=== PATIENT | female | born 1955 | race Caucasian/White ===

== ENCOUNTER 2017-04-15 08:28 | Inpatient (IN) | payer BC ==
--- NOTE | 2017-04-03 10:34 | HISTORY & PHYSICAL EXAMINATION ---
DATE OF ADMISSION: 04/15/2017 PROCEDURE: Right knee replacement. HISTORY OF PRESENT ILLNESS: The patient is a harman 62-year-old female who presents for preoperative evaluation prior to right knee replacement. She states she has been having pain in this knee for several years now, which has gradually worsened, it has now gotten to the point it is affecting her daily activities including walking, standing, going up and down steps. She has tried oral anti-inflammatories without relief. After discussing further care, we would like to proceed with a right knee replacement. PAST MEDICAL HISTORY: 1. Hypothyroidism. 2. GERD. 3. Hypertension. 4. High cholesterol. 5. History of hypokalemia. 6. Anxiety. 7. Seasonal allergies. ALLERGIES: No known drug allergies. CURRENT MEDICATIONS: 1. Levothyroxine 88 mcg daily. 2. Pantoprazole 40 mg daily. 3. Valsartan/hydrochlorothiazide 12.5 mg daily. 4. Diclofenac as needed. 5. Crestor 1 daily. 6. Potassium gluconate 550 mg b.i.d. 7. Vitamin D3. 8. Magnesium. 9. Centrum Silver. 10. Xanax as needed. 11. Zyrtec as needed. PAST SURGICAL HISTORY: 1. Spinal fusion in 2010. 2. 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 3. Abdominal surgery from previous C-sections. FAMILY HISTORY: Noncontributory. SOCIAL HISTORY: Denies a history of smoking or tobacco use. No alcohol consumption. She is , lives in a 2-story home. REVIEW OF SYSTEMS: Otherwise negative. Please see HPI for pertinent positives. PHYSICAL EXAMINATION: GENERAL: Harman 62-year-old female in no acute distress, alert and oriented x3. She is 5 feet 6, weighs 170 pounds. VITAL SIGNS: Blood pressure 130/82, pulse 88, O2 sat is 96% on room air. HEENT: Head normocephalic, atraumatic. CARDIAC: Regular rate and rhythm. No murmurs or gallops appreciated. Resting pulse 88 beats per minute. LUNGS: Clear to auscultation. ABDOMEN: Soft, nontender. Bowel sounds present. EXTREMITIES: Right lower extremity is neurovascularly intact. Calves are soft and nontender. DP pulse +2. Demonstrates good quad tone. Straight leg raise without lag. Overall has a slight valgus deformity. Has positive crepitation with motion. Range of motion is 0/3/120. IMAGING: Reviewed of the right knee show findings consistent with the degenerative joint disease including joint space narrowing, subchondral sclerosis, and osteophyte formation noted. IMPRESSION: 1. Right knee degenerative joint disease. 2. Past medical history as outlined above. PLAN: Further care discussed with patient. At this point in time, has failed conservative measures and would like to proceed with a right knee replacement. We will place on aspirin 81 mg p.o. b.i.d. for a month postop. She otherwise has no other questions or concerns.
[2017-04-03 11:04] VITALS: BMI 29.0
--- NOTE | 2017-04-03 11:35 | PAT Medication Instructions ---
Service Date April 03, 2017. Current Home Medication List Alprazolam (Xanax), 0.5 MG PO HS PRN for RN Bupropion (Wellbutrin Sr), 200 MG PO BID Cetirizine (Zyrtec), 10 MG PO PRN Cholecalciferol (Vitamin D3), 1,000 UNITS PO BID Diclofenac (Voltaren), 50 MG PO BID Levothyroxine Sodium (Tirosint), 88 MCG PO QAM Multivitamin (Multivitamin), 1 TAB PO HS Pantoprazole (Protonix), 40 MG PO for am Potassium Gluconate (Potassium Gluconate), 550 MG PO BID Rosuvastatin Calcium (Crestor), 5 MG PO QPM [Magnesium], 30 MG PO HS [Valsartan Hctz], 1 TAB PO QAM Medication Instructions For Your Scheduled Surgery - Hold the following medications the morning of surgery: [Valsartan Hctz], 1 TAB PO QAM Diclofenac (Voltaren), 50 MG PO BID (otherwise okay to continue per surgeon) Cholecalciferol (Vitamin D3), 1,000 UNITS PO BID Cetirizine (Zyrtec), 10 MG PO PRN Potassium Gluconate (Potassium Gluconate), 550 MG PO BID - Take the following medications the morning of surgery with a sip of water OTHERWISE NOTHING TO EAT OR DRINK AFTER MIDNIGHT: Pantoprazole (Protonix), 40 MG PO Levothyroxine Sodium (Tirosint), 88 MCG PO QAM Bupropion (Wellbutrin Sr), 200 MG PO BID - Take the following medications as scheduled the night before surgery: Multivitamin (Multivitamin), 1 TAB PO HS Rosuvastatin Calcium (Crestor), 5 MG PO QPM [Magnesium], 30 MG PO HS Cholecalciferol (Vitamin D3), 1,000 UNITS PO BID Cetirizine (Zyrtec), 10 MG PO PRN Bupropion (Wellbutrin Sr), 200 MG PO BID Potassium Gluconate (Potassium Gluconate), 550 MG PO BID Alprazolam (Xanax), 0.5 MG PO HS PRN for RN If you have any questions please call us at [phone] or [phone] or [phone]
[2017-04-03 12:32] LABS: URINE APPEARANCE CLEAR (CLEAR); URINE BILIRUBIN NEG (NEG); URINE COLOR DK YELLOW; URINE EPITHELIAL CELL AUTO 20-30 /lpf (0-5); URINE NITRITE NEG (NEG); URINE SPECIFIC GRAVITY 1.028 (1.000-1.030); UROBILINOGEN NEG (NEG)
--- NOTE | 2017-04-03 12:32 | DIAGNOSTIC IMAGING REPORT ---
CHEST 2 VIEWS ROUTINE CLINICAL HISTORY: PAT preoperative evaluation COMPARISON STUDY: No previous studies for comparison. FINDINGS: The bones soft tissues and hemidiaphragms are normal. The cardiomediastinal silhouette is normal. The lungs are clear. The pulmonary vasculature is normal. Possible bilateral nodularity. CT of the chest is suggested as follow-up. IMPRESSION: Possible bilateral pulmonary nodularity with CT chest recommended. Electronically signed by: Wally Atkinson M.D. 04/03/2017 12:30 PM Dictated Date/Time: 04/03/2017 12:29 PM
[2017-04-03 12:35] LABS: PARTIAL THROMBOPLASTIN RATIO 1.2; PROTHROMBIN TIME (PATIENT) 10.3 SECONDS (9.0-12.0)
[2017-04-03 12:44] LABS: MANUAL MICROSCOPIC REQUIRED? NO; REVIEW REQ? NO
[2017-04-03 13:27] LABS: ESTIMATED AVERAGE GLUCOSE 108 mg/dl; HA1C FLAG Normal (Normal)
[2017-04-15] VITALS (9 sets, daily range): BP systolic 98–124; BP diastolic 62–89; PULSE 77–83; TEMP 36.3–36.8; O2SAT 92–96; Ht 167.6 cm; Wt 81.0 kg
[~2017-04-15] VITALS: Ht 167.6 cm; Wt 81.0 kg
--- NOTE | 2017-04-15 06:55 | History & Physical Bridge Note ---
H&P Re-Evaluation Bridge Note: I have examined the patient, reviewed the History & Physical and in the interval since the performance of the History & Physical I have noted the following changes of clinical significance: No changes noted
[~2017-04-15 08:28] MED LIST: ACETAMINOPHEN 500 MG TAB PO SCH; ALPR-411 PO; BUPIVACAINE 0.25% 30 ML VIAL ONE; BUPIVACAINE 0.5 % 5 MG/1 ML PF 10ML VIAL ONE; BUPR200T2 PO; CEFAZOLIN 2000 MG/60 ML D5W 60 ML IV SCH; CETI10TA84 PO; CHOL1CAP57 PO; CeleBREX 200 MG CAP PO SCH; DEXAMETHASONE 4 MG TAB PO SCH; DICL50TA3 PO; FAMOTIDINE 20 MG TAB PO SCH; GABAPENTIN 300 MG CAP PO SCH; LACTATED RINGER'S 1000ML 1,000 ML IV SCH; LACTATED RINGER'S 1000ML IV SCH; LACTATED RINGER'S 500 ML IV SCH; LEVO88CA2 PO; MAGNESIUM PO; METOCLOPRAMIDE HCL 10 MG TAB PO SCH; MULT-506 PO; PANT40TA PO; POTA550T4 PO; ROPIVACAINE 5MG/ML 30 ML 150 MG, BUPIVACAINE/EPINEPHR 0.5% MPF 30 ML, KETOROLAC TROMETH... INFIL SCH; ROSU5TAB PO; VALSARTAN HCTZ PO
[2017-04-15] MEDS ORDERED: LIDOCAINE HCL 2% 2 ML VIAL (20MG/ML) ONE (08:49)
[2017-04-15] MEDS ORDERED: MIDAZOLAM HCL 1 MG/ML 2ML VIAL ONE (08:49)
[2017-04-15] MEDS ORDERED: ONDANSETRON INJ 2 MG/ML 2 ML VIAL ONE (08:49)
[2017-04-15] MEDS ORDERED: FENTANYL CITRATE INJ 50 MCG/1 ML 2 ML VIAL ONE (08:49)
[2017-04-15] MEDS ORDERED: PROPOFOL IV EMULSION 10 MG/ML 20 ML VIAL IV ONE (08:49)
[2017-04-15] MEDS ORDERED: FENTANYL CITRATE INJ 50 MCG/1 ML 2 ML VIAL IV PRN (09:15)
[2017-04-15] MEDS ORDERED: LABETALOL HCL IV 5 MG/ML 20ML IV PRN (09:15)
[2017-04-15] MEDS ORDERED: EpHEDrine SULFATE INJ 50 MG/ML AMP IV PRN (09:15)
[2017-04-15] MEDS ORDERED: HYDROmorphone INJ 1 MG/ML SYR IV PRN (09:15)
[2017-04-15] MEDS ORDERED: ONDANSETRON INJ 2 MG/ML 2 ML VIAL IV PRN ×2 (09:15→11:45)
[2017-04-15] MEDS ORDERED: MEPERIDINE HCL 25 MG/ML CARP IV PRN (09:15)
[2017-04-15] MEDS ORDERED: ATROPINE SULFATE 0.1 MG/ML 5ML SYR IV PRN (09:15)
[2017-04-15] MEDS ORDERED: BACITRACIN 50000 UNIT VIAL ONE (09:58)
[2017-04-15] MEDS ORDERED: ORTHO JOINT ANESTHETIC ONE (09:58)
[2017-04-15] MEDS ORDERED: POVIDONE-IODINE OP SOLN 30 ML BTL ONE (09:58)
--- NOTE | 2017-04-15 11:41 | [facility] Post Operative Brief Note ---
Immediate Operative Summary Operative Date April 15, 2017. Pre-Operative Diagnosis Right Knee Degenerative Joint Disease Post-Operative Diagnosis Same as preop Procedure(s) Performed Right Total Knee Arthroplasty Surgeon Dr. Whitt Childbirth [facility] Teacher Surgeon(s) Layton Ramos PA-C Estimated Blood Loss 5ml Findings severe djd rt knee with valgus alignment Specimens A. Right Knee Bone and Tissue Complication(s) None Disposition Recovery Room / PACU
[2017-04-15] MEDS ORDERED: METOCLOPRAMIDE HCL INJ 5 MG/ML 2 ML VIAL IV PRN (11:45)
[2017-04-15] MEDS ORDERED: MAGNESIUM HYDROXIDE SUSP 30 ML UDC PO PRN (11:45)
[2017-04-15] MEDS ORDERED: HYDROCODONE/ACETAMOPHEN 5/325MG TAB PO PRN (11:45)
[2017-04-15] MEDS ORDERED: SOD PHOSPHATE/SOD BIPHOSPHATE ENEMA 132 ML BTL PR PRN (11:45)
[2017-04-15] MEDS ORDERED: ALUMINUM/MAGNESIUM/SIMETH (MAALOX MAX) 30 ML UDC PO PRN (11:45)
[2017-04-15] MEDS ORDERED: DiphenhydrAMINE HCL 50 MG/ML VIAL IV PRN (11:45)
[2017-04-15] MEDS ORDERED: BISACODYL 10 MG SUPP PR PRN (11:45)
[2017-04-15] MEDS ORDERED: ZOLPIDEM TARTRATE 5 MG TAB PO PRN (11:45)
[2017-04-15] MEDS ORDERED: CETIRIZINE HCL 10 MG TAB PO PRN (11:45)
[2017-04-15] MEDS ORDERED: ALPRAZOLAM 0.5 MG TAB PO PRN (11:45)
--- NOTE | 2017-04-15 12:22 | OPERATIVE REPORT ---
DATE OF OPERATION: 04/15/2017 PREOPERATIVE DIAGNOSIS: Severe end-stage degenerative joint disease, right knee. POSTOPERATIVE DIAGNOSIS: Severe end-stage degenerative joint disease, right knee with valgus alignment. PROCEDURE: Right total knee arthroplasty utilizing Garrett \T\ Nephew Journey II patient matched total knee arthroplasty with size 4 femur, 3 tibia, 11 poly, 29 oval patella. SURGEON: Dr. Whitt. RESPIRATORY SERVICES MANAGER: Layton Ramos PA-C who was necessary for prepping, draping, retraction, wound closure of subQ, fascia and deep wound was necessary for the case. ESTIMATED BLOOD LOSS: 5 mL. COMPLICATIONS: None. TOURNIQUET TIME: 35 minutes. HISTORY OF PRESENT ILLNESS: The patient presents as a very pleasant 62-year-old white female with complaints of ongoing pain attributable to her right knee. She has severe end-stage disease. She has failed attempts at conservative management and presents for total knee arthroplasty after failing injections, corticosteroid injections, viscosupplementation injections as well as activity modification. She presents for total knee arthroplasty. Plan is for total knee arthroplasty, postoperative pain management, DVT prophylaxis. OPERATION AND FINDINGS: PROCEDURE: The patient was properly prepped and draped in supine position for total knee arthroplasty after identifying the appropriate surgical site. An anterior midline incision was made through the subcutaneous tissues down to the region of the extensor mechanism. A medial parapatellar incision was subsequently made. Meticulous hemostasis was obtained and performed at all times. The patella having been subluxed lateralward, medial and lateral meniscal remnants were excised. The patellar cut was then initially made and was sized to the appropriate size. After subluxing the tibia forward the appropriate meniscal fragments having been removed the distal femur was then cut first utilizing a Garrett \T\ Nephew block. The distal femoral cuts and chamfer cuts were all made under direct visualization and the proximal tibial osteotomy cut was also made utilizing Garrett \T\ Nephew blocks and checked with an extramedullary guide. The appropriate trial components on the femur and tibia were placed. Appropriate trial spacers were used to check flexion and extension gaps. With flexion and extension gaps being equal, the components were then subsequently after thorough irrigation and debridement lavage components were then subsequently cemented in the following order: femur, tibia and patella. Exparel was used for intraoperative anesthesia, the medial parapatellar incision was closed utilizing #1 Vicryl, subQ was closed with 2-0 Vicryl, skin was closed with skin clips. A sterile compression dressing was placed. The patient was taken to recovery room in stable condition. Due to the complex nature of the procedure, the entire surgery was performed with the operational assistance of Layton Ramos PA-C. The assistant printer floor covering, under direct supervision, was involved in the actual performance of all aspects of the surgical procedure including hemostasis, tissue retraction and incision, instrument management, patient positioning, and wound closure. I attest to the content of the Intraoperative Record and any orders documented therein. Any exceptio ns are noted below.
[2017-04-15] MEDS ORDERED: MoRPHine SULFATE 2 MG/ML CARP IV PRN (12:30)
--- NOTE | 2017-04-15 12:52 | Anesthesiology Progress Note ---
Anesthesia Post Op Note Date & Time April 15, 2017 at 12:52 Vital Signs Pain Intensity: 0 Vital Signs Past 12 Hours Date Time Temp Pulse Resp B/P Pulse Ox O2 Delivery O2 Flow Rate FiO2 04/15/17 12:16 36.2 76 16 102/73 96 Mask 10 04/15/17 08:59 36.8 78 18 124/89 95 Room Air Notes Mental Status: alert / awake / arousable, participated in evaluation Pt Amnestic to Procedure: Yes Nausea / Vomiting: adequately controlled Pain: adequately controlled Airway Patency, RR, SpO2: stable & adequate BP & HR: stable & adequate Hydration State: stable & adequate Neuraxial Anesthesia: was administered, sensory block is resolving Anesthetic Complications: no major complications apparent
--- NOTE | 2017-04-15 13:12 | DIAGNOSTIC IMAGING REPORT ---
RIGHT KNEE 1 OR 2 VIEWS ROUTINE CLINICAL HISTORY: AP/LATERAL IN PACU RIGHT KNEE Right knee replacement COMPARISON: None. DISCUSSION: Evidence for a total right knee arthroplasty. Good contact between prosthetic and underlying bone. Surgical drains are in position. Expected soft tissue postoperative change IMPRESSION: Anatomic alignment status post total right knee replacement Electronically signed by: Wally Atkinson M.D. 04/15/2017 1:11 PM Dictated Date/Time: 04/15/2017 1:10 PM
[2017-04-15] MEDS: SODIUM CHLORIDE 0.9% 1000ML 1,000 ML IV SCH ×2 (14:33→21:47)
[2017-04-15] MEDS: FERROUS GLUCONATE 324 MG TAB PO SCH (17:42)
[2017-04-15] MEDS ORDERED: TRANEXAMIC ACID INJ 1,000 MG in SODIUM CHLORIDE 0.9% 100ML 100 ML IV SCH (18:00)
[2017-04-15] MEDS: CEFAZOLIN IV 2,000 MG in DEXTROSE 5% 50ML 50 ML IV SCH (19:32)
[2017-04-15] MEDS: OXYCODONE HCL 10 MG TABCR (OXYCONTIN) PO SCH (20:49)
[2017-04-15] MEDS: ASPIRIN 325 MG ECTAB PO SCH (20:49)
[2017-04-15] MEDS: SENNA 8.6 MG TAB PO SCH (20:49)
[2017-04-15] MEDS: ROSUVASTATIN CALCIUM 10 MG TAB PO SCH (20:50)
[2017-04-15] MEDS: DOCUSATE SODIUM 100 MG CAP PO SCH (20:50)
[2017-04-15] MEDS: BuPROPion SR 100 MG TABCR PO SCH (20:50)
[2017-04-15] MEDS ORDERED: MAGNESIUM 30 MG PO SCH (21:00)
[2017-04-15] MEDS ORDERED: NON-FORMULARY MEDICATION (Potassium Gluconate 550 MG) PO SCH (21:00)
[2017-04-15] MEDS: ACETAMINOPHEN 500 MG TAB PO SCH (21:49)
[2017-04-16] MEDS: CEFAZOLIN IV 2,000 MG in DEXTROSE 5% 50ML 50 ML IV SCH (03:28)
[2017-04-16 03:59] VITALS: BP 99/67; PULSE 80; TEMP 36.4; O2SAT 94
[2017-04-16 05:45] LABS: HEMATOCRIT 30.5 % (37-47); MEAN CORPUSCULAR HGB CONC 34.4 g/dl (32-36); MEAN PLATELET VOLUME 9.4 fL (7.4-10.4); PLATELET COUNT 240 K/uL (130-400); RED BLOOD COUNT 3.28 M/uL (4.2-5.4); WHITE BLOOD COUNT 16.78 K/uL (4.8-10.8)
[2017-04-16] MEDS: LEVOTHYROXINE 88 MCG TAB PO SCH (05:58)
[2017-04-16] MEDS: ACETAMINOPHEN 500 MG TAB PO SCH ×3 (05:58→21:50)
[2017-04-16 07:56] VITALS: BP 116/74; PULSE 81; TEMP 36.4; O2SAT 96
--- NOTE | 2017-04-16 08:02 | Anesthesiology Progress Note ---
Anesthesia Post Op Note Date & Time April 16, 2017 at 08:02 Vital Signs Pain Intensity: 0.0 Vital Signs Past 12 Hours Date Time Temp Pulse Resp B/P Pulse Ox O2 Delivery O2 Flow Rate FiO2 04/16/17 07:56 36.4 81 16 116/74 96 Room Air 04/16/17 03:59 36.4 80 16 99/67 94 04/15/17 23:35 36.5 80 16 105/62 94 Room Air Notes Mental Status: alert / awake / arousable, participated in evaluation Pt Amnestic to Procedure: Yes Nausea / Vomiting: adequately controlled Pain: adequately controlled Airway Patency, RR, SpO2: stable & adequate BP & HR: stable & adequate Hydration State: stable & adequate Neuraxial Anesthesia: sensory block resolved Anesthetic Complications: no major complications apparent
[2017-04-16] MEDS: SODIUM CHLORIDE 0.9% 1000ML 1,000 ML IV SCH (08:05)
[2017-04-16] MEDS: DOCUSATE SODIUM 100 MG CAP PO SCH ×2 (08:52→21:18)
[2017-04-16] MEDS: FERROUS GLUCONATE 324 MG TAB PO SCH ×3 (08:52→17:16)
[2017-04-16] MEDS: OXYCODONE HCL 10 MG TABCR (OXYCONTIN) PO SCH ×2 (08:53→21:17)
[2017-04-16] MEDS: MULTIVITAMIN TAB PO SCH (08:53)
[2017-04-16] MEDS: ASPIRIN 325 MG ECTAB PO SCH ×2 (08:53→21:18)
[2017-04-16] MEDS: PANTOprazole SOD 40 MG TAB PO SCH (08:53)
[2017-04-16] MEDS: BuPROPion SR 100 MG TABCR PO SCH ×2 (08:54→21:18)
[2017-04-16] MEDS: OXYCODONE HCL IR 5 MG TAB (IMMEDIATE RELEASE) PO PRN ×3 (08:55→21:19)
--- NOTE | 2017-04-16 10:16 | Orthopedic Progress Note ---
Orthopedic Progress Note Date of Service April 16, 2017. Subjective Post OP Day: 1 Reports: feeling well, Denies: complaints Objective calves soft nontender, N/V intact, dressing C/D/I, A&O x3, toes mobile, hemovac drainage (150ml latest shift) Date Time Temp Pulse Resp B/P Pulse Ox O2 Delivery O2 Flow Rate FiO2 04/16/17 08:00 Room Air 04/16/17 07:56 36.4 81 16 116/74 96 Room Air 04/16/17 03:59 36.4 80 16 99/67 94 04/15/17 23:35 36.5 80 16 105/62 94 Room Air 04/15/17 19:42 36.5 77 18 98/65 93 Room Air 04/15/17 19:40 Room Air 04/15/17 16:34 95 Room Air 04/15/17 16:29 36.4 82 18 98/67 95 Nasal Cannula 2.0 04/15/17 16:00 Nasal Cannula 2.0 04/15/17 15:30 36.3 78 18 105/71 93 Nasal Cannula 2.0 04/15/17 14:30 36.3 83 17 104/72 95 Nasal Cannula 2.0 04/15/17 14:00 36.3 80 17 113/70 96 Nasal Cannula 2.0 04/15/17 13:30 Nasal Cannula 2.0 04/15/17 13:30 92 Nasal Cannula 2.0 04/15/17 13:30 36.6 81 18 100/72 92 Nasal Cannula 2.0 04/15/17 13:11 79 18 04/15/17 13:11 79 18 100/76 96 04/15/17 13:10 36.3 77 16 100/76 95 Nasal Cannula 2 04/15/17 13:06 79 19 04/15/17 13:06 79 19 123/73 96 04/15/17 13:01 75 20 106/66 95 04/15/17 13:01 76 20 04/15/17 12:56 79 20 04/15/17 12:56 79 20 120/78 96 04/15/17 12:51 83 13 04/15/17 12:51 82 13 102/65 96 04/15/17 12:46 81 20 110/74 94 04/15/17 12:46 80 20 04/15/17 12:41 85 18 04/15/17 12:41 85 18 101/62 96 04/15/17 12:36 80 15 125/68 97 04/15/17 12:36 81 15 04/15/17 12:31 84 18 110/70 95 04/15/17 12:31 84 16 04/15/17 12:26 78 13 04/15/17 12:26 78 13 107/66 95 04/15/17 12:21 79 14 98/64 95 04/15/17 12:21 79 14 04/15/17 12:17 102/73 04/15/17 12:16 78 97 04/15/17 12:16 78 04/15/17 12:16 36.2 76 16 102/73 96 Mask 10 Laboratory Results 24 Hours: Test 04/16/17 05:07 Hematocrit 30.5 % Hemoglobin 10.5 g/dL Assessment & Plan Assessment: POD 1 s/p Right TKA Plan: PT/OT Planning for OPPT Inhouse Planning Pain Management: Oxycontin, Morphine, PO Tylenol, Oxy IR DVT Prophylaxis: TEDs, SCDs, ASA Discharge Planning Discharge Planning: home with oppt Pain Management: Oxycontin, Morphine, PO Tylenol, Oxy IR DVT Prophylaxis: TEDs, ASA Therapy: Physical Therapy
[2017-04-16 10:48] LABS: BUN/CREATININE RATIO 15.8 (10-20); CALCIUM 8.2 mg/dl (8.5-10.1); CREATININE 0.78 mg/dl (0.60-1.20); POTASSIUM 4.1 mmol/L (3.5-5.1)
[2017-04-16 12:00] VITALS: BP 101/63; PULSE 74; TEMP 36.4; O2SAT 92
[2017-04-16 15:54] VITALS: BP 118/80; PULSE 79; TEMP 36.6; O2SAT 97
[2017-04-16] MEDS: SENNA 8.6 MG TAB PO SCH (21:48)
[2017-04-16] MEDS: ROSUVASTATIN CALCIUM 10 MG TAB PO SCH (21:49)
[2017-04-16 23:05] VITALS: BP 121/82; PULSE 73; TEMP 36.4; O2SAT 94
[2017-04-17] MEDS: OXYCODONE HCL IR 5 MG TAB (IMMEDIATE RELEASE) PO PRN ×2 (05:15→13:42)
[2017-04-17] MEDS: ACETAMINOPHEN 500 MG TAB PO SCH ×2 (06:11→13:49)
[2017-04-17] MEDS: LEVOTHYROXINE 88 MCG TAB PO SCH (06:11)
[2017-04-17 06:38] VITALS: BP 112/73; PULSE 68; TEMP 36.3; O2SAT 95
[2017-04-17] MEDS: OXYCODONE HCL 10 MG TABCR (OXYCONTIN) PO SCH (08:02)
[2017-04-17] MEDS: FERROUS GLUCONATE 324 MG TAB PO SCH ×2 (08:03→13:34)
[2017-04-17] MEDS: MULTIVITAMIN TAB PO SCH (08:04)
[2017-04-17] MEDS: PANTOprazole SOD 40 MG TAB PO SCH (08:04)
--- NOTE | 2017-04-17 10:28 | Orthopedic Progress Note ---
Orthopedic Progress Note Date of Service April 17, 2017. Subjective Post OP Day: 2 Reports: nausea / vomiting, Denies: SOB, calf pain, chest pain, light headedness Additional Notes: Pt with nausea this AM that developed at the tail end of PT. Feels it was due to the breakfast she had eaten. No other complaints. Still would like to go home today. Zofran given and is starting to help her. No other complaints. Objective calves soft nontender, N/V intact, dressing C/D/I, A&O x3, toes mobile Date Time Temp Pulse Resp B/P Pulse Ox O2 Delivery O2 Flow Rate FiO2 04/17/17 08:00 Room Air 04/17/17 06:38 36.3 68 16 112/73 95 Room Air 04/16/17 23:05 36.4 73 16 121/82 94 Room Air 04/16/17 20:20 Room Air 04/16/17 16:23 Room Air 04/16/17 15:54 36.6 79 16 118/80 97 Room Air 04/16/17 12:00 36.4 74 16 101/63 92 Room Air Assessment & Plan Assessment: POD 2 s/p Right TKA Plan: PT/OT Planning for OPPT Will recheck patient today to see how she is doing with her nausea; possible dc home today. Inhouse Planning Pain Management: Oxycontin, Morphine, PO Tylenol, Oxy IR DVT Prophylaxis: TEDs, SCDs, ASA Discharge Planning Discharge Planning: home with oppt Pain Management: Oxycontin, Morphine, PO Tylenol, Oxy IR DVT Prophylaxis: TEDs, ASA Therapy: Physical Therapy
[2017-04-17] MEDS ORDERED: OXYSR10 PO (10:32)
[2017-04-17] MEDS ORDERED: ONDA8TAB6 PO (10:32)
[2017-04-17] MEDS ORDERED: ACET-1138 PO (10:32)
[2017-04-17] MEDS ORDERED: ASPEC81 PO (10:32)
[2017-04-17] MEDS ORDERED: SNK PO (10:32)
[2017-04-17] MEDS ORDERED: RXC5 PO (10:32)
--- NOTE | 2017-04-17 10:38 | Discharge Instructions ---
Discharge Instructions Date of Service April 17, 2017. Admission Reason for Admission: Unilateral Primary Osteoarthritis, Right Knee Discharge Discharge Diagnosis / Problem: Right Knee Djd Discharge Goals Goal(s): Decrease discomfort, Improve function Activity Recommendations Activity Limitations: per Instructions/Follow-up section Weightbearing Status: Right weightbearing (as tolerated) . Instructions / Follow-Up Instructions / Follow-Up ACTIVITY RECOMMENDATIONS: SELF CARE INSTRUCTIONS AFTER TOTAL KNEE REPLACEMENT A. You may need to continue a physical therapy program after discharge from the hospital. There are several options available to you. Your doctor will assist you in selecting the best one for you. 1. An out-patient facility 2 to 3 times a week for therapy or home therapy. 2. Continue working on all exercises taught to you in the hospital. Your goals should be to increase bending of your knee to 90 degrees and beyond and to fully straighten your knee. B. You may progress at your own pace from walking with a walker or crutches to a cane; then to no assistive devices. C. Make walking a part of your daily routine. Be up as much as comfortable with rest periods throughout the day. Rest with leg elevation is very important. Use the ice wrap frequently for the first 3-4 weeks. D. There are no restrictions on activities. You may ride in a car, shop, participate in hot frame tender and all social activities. E. Wear the long elastic stockings (SANDY hose) 20 hours a day for 2 weeks after surgery. They can be removed several times a day for laundering and for a bath. F. You may shower, no tub baths until cleared by your doctor. SPECIAL CARE INSTRUCTIONS: VERY IMPORTANT TO READ AND REVIEW A. There are a few signs you need to watch for after you are home. Call [facility] if you notice any of the followin. Increased severe knee pain. Some pain is expected especially when you exercise. 2. Increased swelling in your leg or knee; pain or swelling of the calf muscle in either lower leg. 3. Any fluid drainage from the incision. 4. Shortness of breath or chest pain. B. Please call [facility] at if you have any concerns or questions about your operation or recovery. The doctor or his nurse will return your call promptly. C. You must take antibiotics before dental work, bladder, bowel or other surgery. Your doctor will provide you with a permanent care to carry describing this precaution. IMPORTANT: * REMEMBER TO TAKE ASPIRIN, 81 MG, TWICE DAILY FOR 4 WEEKS UNLESS OTHERWISE DIRECTED. THIS IS YOUR BLOOD THINNER. * HIGH RISK PATIENTS MAY BE PRESCRIBED A STRONGER BLOOD THINNER. THIS WILL BE PROVIDED AT DISCHARGE. * CALL IF INCREASED PAIN, REDNESS, DRAINAGE OR FEVER GREATER THAT 101. * WEAR SANDY HOSE 20 HOURS PER DAY FOR 2 WEEKS. * Silverlon- This is a large adhesive bandage that contains silver ions. This helps your incision heal by fighting off bacteria and protecting it from the outside environment. You are permitted to shower with this dressing. This will remain on your incision for 7 days and then should be removed. Some visible blood or drainage through the dressing window is normal. If there is significant drainage or leaking noted before the 7 days notify your doctor's office immediately. Once removed, keep incision clean and dry. If there is any drainage or redness noted, please call your surgeon. . FOLLOW UP VISIT: If appointment is not already scheduled: Please call [facility] to make a follow-up appointment for 2 weeks after your surgery at . Current Hospital Diet Patient's current hospital diet: Regular Diet Discharge Diet Recommended Diet: Regular Diet Procedures Procedures Performed: Right Total Knee Arthroplasty Pending Studies Studies pending at discharge: no Laboratory Results Hemoglobin A1c Test 04/03/17 11:45 Range/Units Estimated Average Glucose 108 mg/dl Hemoglobin A1c 5.4 4.5-5.6 % Medical Emergencies . Who to Call and When: Medical Emergencies: If at any time you feel your situation is an emergency, please call 911 immediately. . Non-Emergent Contact Non-Emergency issues call your: Surgeon Call Non-Emergent contact if: temperature is above 101.5, your pain is not controlled, your pain is worsening, wound has increased drainage, wound has increased redness . "Provider Documentation" section prepared by Layton Ramos. . VTE Core Measure Inpt VTE Proph given/why not?: Other Anticoagulation, T.E.D. Stockings, SCD's [place] Drug Monitoring Program Search Results: patient reviewed within database, no issues identified
[2017-04-17] MEDS: DOCUSATE SODIUM 100 MG CAP PO SCH (11:31)
[2017-04-17] MEDS: ASPIRIN 325 MG ECTAB PO SCH (11:32)
[2017-04-17] MEDS: BuPROPion SR 100 MG TABCR PO SCH (11:32)
[2017-04-17 12:21] VITALS: BP 112/73; PULSE 68; TEMP 36.3; O2SAT 95
--- NOTE | 2017-04-21 11:31 | Discharge Summary ---
Orthopedic Discharge Summary Admission Date/Reason April 15, 2017 at 09:30 Unilateral Primary Osteoarthritis, Right Knee. Discharge Date/Disposition April 17, 2017 Home Diagnosis Principal Diagnosis: Right Knee Djd Secondary Diagnoses/Problems: 1. Hypothyroidism. 2. GERD. 3. Hypertension. 4. High cholesterol. 5. History of hypokalemia. 6. Anxiety. 7. Seasonal allergies. Procedure(s) Performed Right TKA Medication Reconciliation New Medications: Aspirin (Aspirin EC Low Dose) 81 Mg Ectab 1 TAB PO BID for 30 Days Ondansetron Hcl (Zofran) 8 Mg Tab 8 MG PO TID PRN for Nausea, #20 TAB Acetaminophen (Tylenol Extra Strength) 500 Mg Tab 1000 MG PO Q8 for 30 Days, #180 TAB Oxycodone HCl (Oxycontin) 10 Mg Tabcr 10 MG PO Q12H, #20 Oxycodone HCl (Oxycodone HCl) 5 Mg Tab 5-10 MG PO Q4H PRN for Pain, #60 TAB Senna (Senna Lax) 8.6 Mg Tab 17.2 MG PO HS, #30 TAB Continued Medications: Alprazolam (Xanax) 0.5 Mg Tab 0.5 MG PO HS PRN for RN, TAB Bupropion (Wellbutrin Sr) 200 Mg Ertab 200 MG PO BID, TAB Cetirizine (Zyrtec) 10 Mg Tab 10 MG PO PRN, TAB Cholecalciferol (Vitamin D3) 1,000 Unit Cap 1000 UNITS PO BID Levothyroxine Sodium (Tirosint) 88 Mcg Cap 88 MCG PO QAM Multivitamin (Multivitamin) Tab 1 TAB PO HS, TAB Pantoprazole (Protonix) 40 Mg Tab 40 MG PO PRN for am, #30 TAB Potassium Gluconate (Potassium Gluconate) 550 Mg Tab 550 MG PO BID Rosuvastatin Calcium (Crestor) 5 Mg Tab 5 MG PO QPM, TAB [Magnesium] () 30 MG PO HS [Valsartan Hctz] () 1 TAB PO QAM 80/12.5 MG Discontinued Medications: Diclofenac (Voltaren) 50 Mg Tabec 50 MG PO BID, TAB Admission Physical Exam As per Admitting History & Physical. Hospital Course The Patient had an uneventful hospital course. Labs remained stable- lowest hemoglobin recorded: 10.5 . Pain controlled on oral medications. Participated in PT with ambulation distance of 550 feet. ROM of operative knee reached 90 degrees. Drainage output totaled 950 cc prior to discontinuation. Patient did not have a reported bowel movement. Incision remained clean/dry/intact. DVT prophylaxis with Aspirin EC 81mg BID x 30 days/Fredrick stockings. Patient discharged home with Outpatient PT in stable condition. Please refer to daily progress notes for further details. Discharge Instructions Please refer to the electronic Patient Visit Report (Discharge Instructions) for additional information.
== END 2017-04-17 15:10 | disposition home or self-care (01) | DRG 470 ==
LOC: ENRESERVDT → ENRESERVTM → C.ACU 08:28 → C.MSW 09:30
PROVIDERS: ADMIT Orthopaedic Surgery; ATTEND Orthopaedic Surgery
PROC: 0SRC0J9 Replacement of Right Knee Joint with Synthetic Substitute, Cemented, Open Approach (ICD-10-PCS; principal; 2017-04-15 10:15)
DX: M17.11 Unilateral primary osteoarthritis, right knee (principal); E03.9 Hypothyroidism, unspecified; K21.9 Gastro-esophageal reflux disease without esophagitis; I10 Essential (primary) hypertension; E78.00 Pure hypercholesterolemia, unspecified; F41.9 Anxiety disorder, unspecified; J30.2 Other seasonal allergic rhinitis; G47.33 Obstructive sleep apnea (adult) (pediatric); Z99.89 Dependence on other enabling machines and devices; Z98.1 Arthrodesis status; Z86.718 Personal history of other venous thrombosis and embolism; Z79.899 Other long term (current) drug therapy; Z79.1 Long term (current) use of non-steroidal anti-inflammatories (NSAID); Z85.110 Personal history of malignant carcinoid tumor of bronchus and lung; Z90.2 Acquired absence of lung [part of]; Z87.891 Personal history of nicotine dependence

== ENCOUNTER 2023-02-05 06:40 | Observation (INO) ==
--- NOTE | 2023-01-20 12:37 | PAT Medication Instructions ---
Medication Instructions Date of Service January 20, 2023 Home Medications Medication List Probiotic And Digestive Enzyme 1 cap PO BID alprazolam 0.25 mg tablet (Xanax) 0.25 mg PO BID PRN Anxiety aspirin 81 mg capsule 81 mg PO HS bupropion HCl 200 mg tablet,12 hr sustained-release 200 mg PO BID cetirizine 10 mg tablet (Zyrtec) 10 mg PO DAILY PRN allergies cholecalciferol (vitamin D3) 125 mcg (5,000 unit) tablet (Vitamin D3) 125 mcg PO HS indapamide 2.5 mg tablet 2.5 mg PO QAM levothyroxine 88 mcg tablet (Synthroid) 88 mcg PO QAM magnesium 1 tab PO HS naproxen sodium 220 mg tablet (Aleve) 440 mg PO BID PRN Pain pantoprazole 40 mg tablet,delayed release 40 mg PO QAM potassium chloride 99 mcg PO HS spironolactone 25 mg tablet 25 mg PO QAM verapamil 100 mg capsule 24hr pellet CT,ext.release 100 mg PO HS vit C 250 mg-vit E 90 mg-zinc 40 mg-copper 1 ab-uilibr-vyqclp capsule (PreserVision AREDS-2) 1 tab PO BID ASK your surgeon for instructions naproxen sodium 220 mg tablet (Aleve) 440 mg PO BID PRN Pain ASK your prescriber and surgeon aspirin 81 mg capsule 81 mg PO HS STOP taking 2 weeks before surgery vit C 250 mg-vit E 90 mg-zinc 40 mg-copper 1 va-dygwdt-ocopga capsule (PreserVision AREDS-2) 1 tab PO BID DO NOT take the morning of surgery Probiotic And Digestive Enzyme 1 cap PO BID cetirizine 10 mg tablet (Zyrtec) 10 mg PO DAILY PRN allergies spironolactone 25 mg tablet 25 mg PO QAM indapamide 2.5 mg tablet 2.5 mg PO QAM Take morning of surgery With a small sip of water, OTHERWISE NOTHING TO EAT OR DRINK AFTER MIDNIGHT: alprazolam 0.25 mg tablet (Xanax) 0.25 mg PO BID PRN Anxiety (if needed) bupropion HCl 200 mg tablet,12 hr sustained-release 200 mg PO BID levothyroxine 88 mcg tablet (Synthroid) 88 mcg PO QAM pantoprazole 40 mg tablet,delayed release 40 mg PO QAM Take evening before surgery Probiotic And Digestive Enzyme 1 cap PO BID alprazolam 0.25 mg tablet (Xanax) 0.25 mg PO BID PRN Anxiety (if needed) verapamil 100 mg capsule 24hr pellet CT,ext.release 100 mg PO HS magnesium 1 tab PO HS bupropion HCl 200 mg tablet,12 hr sustained-release 200 mg PO BID potassium chloride 99 mcg PO HS cholecalciferol (vitamin D3) 125 mcg (5,000 unit) tablet (Vitamin D3) 125 mcg PO HS Other Notes If you have any questions please call us at [phone] or [phone] or [phone] or [phone]
--- NOTE | 2023-01-23 10:14 | Anesthesiology Consultation ---
Date of Service January 23, 2023 Assessment & Plan (1) Encounter for pre-operative examination: Outpatient joint assessment: Patient is currently scheduled for inpatient pathway. If re-evaluated pending system levels during current pandemic/surgeon requests outpatient pathway, patient is acceptable candidate for outpatient joint program from anesthesia standpoint pending surgeon's office assessment of pt motivation/support/completion of same day joint program preop requirements. Chart Review Chart Review: Acceptable Risk for Surgery and Patient seen in Pre Admission Testing Teaching & Discussion Pre-Anesthesia Teaching/Discussion Notes: Instructed NPO after midnight before surgery, except medications with 15 cc of water. Medication instructions provided according to the PAT guidelines. History Surgery Operation Date: 02/05/23 12:00 Proposed Procedures p Right Total Shoulder Arthroplasty - Moisés Sanchez MD Height/Weight Height: 5 ft 6 in Weight: 74.1 kg Allergies Allergy/AdvReac Type Severity Reaction Status Date / Time No Known Allergies Allergy Verified 01/20/23 09:27 Medications Home Medications Medication Instructions Recorded Confirmed Last Taken Probiotic And Digestive Enzyme 1 cap PO BID 01/20/23 01/20/23 Unknown alprazolam 0.25 mg tablet (Xanax) 0.25 mg PO BID PRN Anxiety 01/20/23 01/20/23 Unknown aspirin 81 mg capsule 81 mg PO HS 01/20/23 01/20/23 Unknown bupropion HCl 200 mg tablet,12 hr 200 mg PO BID 01/20/23 01/20/23 Unknown sustained-release cetirizine 10 mg tablet (Zyrtec) 10 mg PO DAILY PRN allergies 01/20/23 01/20/23 Unknown cholecalciferol (vitamin D3) 125 125 mcg PO HS 01/20/23 01/20/23 Unknown mcg (5,000 unit) tablet (Vitamin D3) indapamide 2.5 mg tablet 2.5 mg PO QAM 01/20/23 01/20/23 Unknown levothyroxine 88 mcg tablet 88 mcg PO QAM 01/20/23 01/20/23 Unknown (Synthroid) magnesium 1 tab PO HS 01/20/23 01/20/23 Unknown naproxen sodium 220 mg tablet 440 mg PO BID PRN Pain 01/20/23 01/20/23 Unknown (Aleve) pantoprazole 40 mg tablet,delayed 40 mg PO QAM 01/20/23 01/20/23 Unknown release potassium chloride 99 mcg PO HS 01/20/23 01/20/23 Unknown spironolactone 25 mg tablet 25 mg PO QAM 01/20/23 01/20/23 Unknown verapamil 100 mg capsule 24hr 100 mg PO HS 01/20/23 01/20/[address],ext.release vit C 250 mg-vit E 90 mg-zinc 40 1 tab PO BID 01/20/23 01/20/23 Unknown mg-copper 1 [id number]-gedlhm-[id number] capsule (PreserVision AREDS-2) rosuvastatin 40 mg tablet 40 mg QPM 01/23/23 01/23/23 Unknown Additional Notes: Pt was advised to take rosuvastatin as usual. This was also written on medication instructions. She verbalized understanding and agreement, denied questions, concerns or additional medications. Past Medical History Medical History (Updated 01/23/23 @ 10:33 by Apoorva Zepeda PA-C) Anxiety Family history of hemochromatosis GERD (gastroesophageal reflux disease) controlled, stable per pt Hx of cancer of lung 6 years ago, s/p lung resection "no other treatments necessary" Hypertension controlled, stable per pt Hypothyroidism Patient denies h/o stroke, seizures, heart attack, heart failure, DM, blood abran ts or blood transfusions. 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) History of open reduction and internal fixation (ORIF) procedure rt humerus Hx of arthrodesis left, triple arthrodesis of foot Hx of section x2 Hx of colonoscopy Hx of spinal fusion lumbar x 2 Hx of tonsillectomy Hx of total hysterectomy with removal of both tubes and ovaries Past Anesthesia History No Hx of Anesthesia Complications and No Family Hx of Anesthesia Complications History of PONV No Hx of PONV and No Hx of Motion Sickness Social History Smoking Status: Former smoker tobacco type: cigarettes Do You Dip or Chew Tobacco: No Smoking End Date: 20 years ago-only a social smoker at that time Hx Alcohol Use: Yes Alcohol type: beer, wine and hard liquor alcohol intake frequency: holidays/special occasions only Hx Substance Use: No substance use type: does not use Review of Systems Occasional snoring, denies witnessed apneas. Patient denies chest pain, shortness of breath, dyspnea on exertion, fever, chills, cough, wheezing, or palpitations. Physical Exam Vital Signs Vitals BP 120/85 P 74 TEMP 98.1 SP02 97% on RA RESP 18 Physical Full cervical extension range of motion without pain TMD 3.5 finger breadths Mallampati Score 2 Dentition: multiple caps and implant right lower side; denies chipped or loose teeth, bridges Lungs: normal respiratory effort. Clear throughout to auscultation, no adventitious breath sounds Cardiac: regular rate and rhythm, no murmurs noted Carotid arteries: negative bruit bilat Lab Results Anesthesia Preop Results Results Anesthesia Widget: WBC 8.17 K/ul (4.8-10.8) 01/23/23 Hgb 14.2 g/dl (12.0-16.0) 01/23/23 Hct 40.6 % (37.0-47.0) 01/23/23 Plt 293 K/uL (130-400) 01/23/23 Na 138 mmol/L (136-145) 01/23/23 K 3.6 mmol/L (3.5-5.1) 01/23/23 Cl 99 mmol/L (98-107) 01/23/23 CO2 33 mmol/L (21-32) H 01/23/23 BUN 28 mg/dl (6-23) H 01/23/23 Creat 0.80 mg/dl (0.6-1.2) 01/23/23 Glucose Level 97 mg/dl (70-99(Fasting)) 01/23/23 PT 11.0 Seconds (9.0-12.0) 01/23/23 PTT 31.1 Seconds (21.0-31.0) H 01/23/23 INR 1.0 (0.9-1.1) 01/23/23 Urine Color Yellow 01/23/23 Urine Appearance Clear (Clear) 01/23/23 Urine pH 6.5 (4.5-7.5) 01/23/23 Urine Specific [place] 1.016 (1.000-1.030) 01/23/23 Urine Protein Negative (Negative) 01/23/23 Urine Glucose (UA) Negative (Negative) 01/23/23 Urine Ketones Negative (Negative) 01/23/23 Urine Blood Negative (Negative) 01/23/23 Urine Nitrite Negative (Negative) 01/23/23 Urine Bilirubin Negative (Negative) 01/23/23 Urine Urobilinogen Negative (Negative) 01/23/23 Urine Leukocyte Esterase Negative (Negative) 01/23/23 Blood Type AB Positive 01/23/23 Antibody Screen NEGATIVE 01/23/23 Testing Electrocardiogram Date: 04/10/22 NSR, rate 73 bpm Left axis deviation Moderate voltage criteria for LVH, may be normal variant Chest X-Ray Date: 01/23/23 No lines and tubes are seen. The cardiomediastinal silhouette is normal. The lungs are clear. No evidence of pleural effusion or pneumothorax. Degenerative changes are seen in the spine. Posterior fixation hardware is noted in the lumbar spine. IMPRESSION: No acute chest disease. Stress Test Date: 09/10/21 Exercise No scintigraphic evidence for inducible ischemia EF 57% COVID-19 Risk Screen Screening Information COVID-19 Screen Date: 01/23/23 Exposure 21 Days Family/Household +COVID Last 21 Days: No Exposure 10 Days Any COVID Exposure Last 10 Days: No Symptoms Last 10 Days Experienced COVID Sx Last 10 Days: No + COVID 0-90 Days COVID + in Last 0-90 Days: No
--- NOTE | 2023-02-02 10:11 | History & Physical Report ---
Date of Service February 02, 2023 Assessment & Plan (1) Primary osteoarthritis, right shoulder: Plan: Treatment options discussed with the patient. She has failed conservative measures. Risks, benefits and alternatives to surgery including but not limited to infection, DVT, pain, stiffness, need for revision surgery, damage to blood vessels, damage to nerves, PE, , were discussed with the patient and they wish to proceed. Plan for right total shoulder arthroplasty scheduled for February 05 at [facility] with Dr. Sanchez. Plan on outpatient physical therapy postop. Questions answered. Patient follow-up postop. History of Present Illness Chief Complaint: right shoulder pain Primary Care Provider: Hamlet Paul 67-year-old female with past medical history significant for hypertension, hypothyroidism, history of lung CA who presents with longstanding right shoulder pain. Patient has failed conservative measures. Pain is interfering with her daily activities. She would like to proceed with surgical intervention. Patient denies headaches, sweats, fevers, chills, double vision, blurred vision, cough, sore throat, dysphagia, chest pain, sob, wheezing, n/v/d/c, numbness, tingling, fatigue, urinary symptoms, mood disorders. ROS positive for right shoulder pain and stiffness. Allergies Allergy/AdvReac Type Severity Reaction Status Date / Time No Known Allergies Allergy Verified 01/20/23 09:27 Home Medications Medication Instructions Recorded Confirmed Type Probiotic And Digestive Enzyme 1 cap PO BID 01/20/23 01/20/23 History alprazolam 0.25 mg tablet (Xanax) 0.25 mg PO BID PRN Anxiety 01/20/23 01/20/23 History aspirin 81 mg capsule 81 mg PO HS 01/20/23 01/20/23 History bupropion HCl 200 mg tablet,12 hr 200 mg PO BID 01/20/23 01/20/23 History sustained-release cetirizine 10 mg tablet (Zyrtec) 10 mg PO DAILY PRN allergies 01/20/23 01/20/23 History cholecalciferol (vitamin D3) 125 125 mcg PO HS 01/20/23 01/20/23 History mcg (5,000 unit) tablet (Vitamin D3) indapamide 2.5 mg tablet 2.5 mg PO QAM 01/20/23 01/20/23 History levothyroxine 88 mcg tablet 88 mcg PO QAM 01/20/23 01/20/23 History (Synthroid) magnesium 1 tab PO HS 01/20/23 01/20/23 History naproxen sodium 220 mg tablet 440 mg PO BID PRN Pain 01/20/23 01/20/23 History (Aleve) pantoprazole 40 mg tablet,delayed 40 mg PO QAM 01/20/23 01/20/23 History release potassium chloride 99 mcg PO HS 01/20/23 01/20/23 History spironolactone 25 mg tablet 25 mg PO QAM 01/20/23 01/20/23 History verapamil 100 mg capsule 24hr 100 mg PO HS 01/20/23 01/20/[address],ext.release vit C 250 mg-vit E 90 mg-zinc 40 1 tab PO BID 01/20/23 01/20/23 History mg-copper 1 ab-eoqnyb-nxbkti capsule (PreserVision AREDS-2) rosuvastatin 40 mg tablet 40 mg QPM 01/23/23 01/23/23 History Past Med/Surg History Medical History (Updated 02/02/23 @ 10:11 by Ash Baker PA-C) Anxiety Family history of hemochromatosis GERD (gastroesophageal reflux disease) controlled, stable per pt Hx of cancer of lung 6 years ago, s/p lung resection "no other treatments necessary" Hypertension controlled, stable per pt Hypothyroidism Surgical History (Updated 01/23/23 @ 10:34 by Apoorva Zepeda PA-C) 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) History of open reduction and internal fixation (ORIF) procedure rt humerus Hx of arthrodesis left, triple arthrodesis of foot Hx of section x2 Hx of colonoscopy Hx of spinal fusion lumbar x 2 Hx of tonsillectomy Hx of total hysterectomy with removal of both tubes and ovaries Social History Smoking Status: Former smoker Second Hand Exposure: No; Hx Alcohol Use: Yes Alcohol type: beer, wine and hard liquor Hx Substance Use: No Preferred Language: Arabic Communication Ability: Effective Engagement Quality Consultant Required: No Beliefs That Will Affect Care: None Current Living Situation: Spouse Feels Safe at Home: Yes Assistive Devices: Glasses Review of Systems All systems reviewed & are unremarkable except as noted in HPI & below Physical Exam Constitutional: well developed and well nourished; no acute distress Eyes: PERRL, conjunctivae normal, anicteric sclerae ENMT: external ear and nose normal, oropharynx normal Neck: trachea midline, no thyromegaly Respiratory: normal respiratory effort, lungs clear to auscultation Cardiovascular: RRR, no murmur, no edema Musculoskeletal: Right shoulder: Diffuse tenderness most severe anterior glenoid. Crepitation with range of motion. She has positive impingement signs. Has painful range of motion in all directions. Abduction to 70 degrees, forward flexion to 140 degrees, external rotation to 45 degrees. Skin: no rashes, warm and dry Neurologic: patellar DTR's 2+ bilat, sensation intact Psychiatric: A+Ox3, euthymic affect Results & Data ([facility]) Diagnostic Findings Right shoulder radiographs demonstrate severe end-stage osteoarthritis right shoulder, clne-mi-wifp glenohumeral joint. There is bone loss of the glenoid. She has flattening of the humeral head with collapse. There is periarticular osteophytes. MRI demonstrates intact rotator cuff.
[~2023-02-05 06:40] MED LIST changes: -ALPR-411 PO; -BUPIVACAINE 0.25% 30 ML VIAL ONE; -BUPR200T2 PO; -CEFAZOLIN 2000 MG/60 ML D5W 60 ML IV SCH; -CETI10TA84 PO; -CHOL1CAP57 PO; -DEXAMETHASONE 4 MG TAB PO SCH; -DICL50TA3 PO; -GABAPENTIN 300 MG CAP PO SCH; +GABAPENTIN 600 MG DOSE PO SCH; -LACTATED RINGER'S 1000ML 1,000 ML IV SCH; -LACTATED RINGER'S 1000ML IV SCH; -LACTATED RINGER'S 500 ML IV SCH; -LEVO88CA2 PO; +LR 15ML/HR IV SCH; -MAGNESIUM PO; -METOCLOPRAMIDE HCL 10 MG TAB PO SCH; +METOCLOPRAMIDE HCL 10 MG TABLET PO SCH; -MULT-506 PO; -PANT40TA PO; -POTA550T4 PO; -ROPIVACAINE 5MG/ML 30 ML 150 MG, BUPIVACAINE/EPINEPHR 0.5% MPF 30 ML, KETOROLAC TROMETH... INFIL SCH; -ROSU5TAB PO; +TRANEXAMIC ACID 1,000 MG **IV Intra-op IV SCH; +TRANEXAMIC ACID 1,000 MG **IV Pre-op IV SCH; -VALSARTAN HCTZ PO; +ceFAZolin 2000MG 2,000 MG/15 ML SYR IV SCH; +dexAMETHasone 4 MG TAB PO SCH
[2023-02-05] MEDS ORDERED: DEXAMETHASONE SOD INJ 4 MG/ML VIAL ONE (06:46)
[2023-02-05] MEDS ORDERED: ONDANSETRON INJ 2 MG/ML 2 ML VIAL ONE (06:46)
[2023-02-05] MEDS ORDERED: MIDAZOLAM HCL 1 MG/ML 2ML VIAL ONE (06:46)
[2023-02-05] MEDS ORDERED: ROCURONIUM BROMIDE 10 MG/ML 5 ML VIAL IV ONE (06:46)
[2023-02-05] MEDS ORDERED: PROPOFOL IV EMULSION 10 MG/ML 20 ML VIAL IV ONE (06:46)
[2023-02-05] MEDS ORDERED: fentaNYL citrate PF 100 MCG/2 ML VIAL ONE (06:46)
[2023-02-05] MEDS ORDERED: SUGAMMADEX SODIUM 200 MG/2 ML VIAL IV ONE (06:46)
--- NOTE | 2023-02-05 07:15 | History & Physical Bridge Note ---
Date of Service February 05, 2023 History & Physical Bridge Note I have examined the patient, reviewed the History & Physical and in the interval since the performance of the History & Physical I have noted the following changes of clinical significance: no changes noted
[2023-02-05] MEDS ORDERED: EpINEphrine HCL INJ 1 MG/ML 1ML SYRINGE ONE (08:29)
[2023-02-05] MEDS ORDERED: KETOROLAC 30 MG/ML VIAL IV PRN (08:32)
[2023-02-05] MEDS ORDERED: ONDANSETRON INJ 2 MG/ML 2 ML VIAL IV PRN ×2 (08:32→13:26)
[2023-02-05] MEDS ORDERED: ATROPINE SULFATE 0.1 MG/ML 10ML SYR IV PRN (08:32)
[2023-02-05] MEDS ORDERED: fentaNYL citrate PF 100 MCG/2 ML VIAL IV PRN (08:32)
--- NOTE | 2023-02-05 11:59 | Operative Report ---
Post Operative Report Pre & Post Diagnosis Operation Date: 02/05/23 09:10 Pre-Op Diagnosis: Right Shoulder end-stage glenohumeral osteoarthritis, biceps tenosynovitis. Post-Op Diagnosis: Right Shoulder end-stage glenohumeral osteoarthritis, biceps tenosynovitis, posterior ligamentous laxity shoulder instability. I identified the patient and participated in the time-out.: Yes Procedure Operation Date: 02/05/23 09:10 Actual Procedures p Right stemless total Shoulder Arthroplasty(Right), biceps tenodesis, biceps tenosynovectomy, posterior capsular shift- Moisés Sanchez MD Surgeon Moisés Sanchez MD [employer] Manager Layton GREWAL, Mandy GREWAL Estimated Blood Loss 150 Findings Consistent with Post-Op Diagnosis Specimens Humeral head Drains 2 Hemovac Anesthesia Type General Regional Complications none Disposition Disposition: Recovery Room Indications 67-year-old female with progressive osteoarthritis in her right shoulder. Patient has history of a previous ipsilateral humerus fracture distal third area with plate fixation of the humerus. Radiographs demonstrate significant flattening of the humeral head and bone loss of the glenoid with type A wear pattern. [facility]op [facility] templating demonstrated that anatomic shoulder replacement was still possible and stemless replacement chosen due to hardware issues distally. Description of Procedure The patient was taken to the operating room and anesthetized under a general and regional block anesthesia. A towel roll was placed under the medial border of the scapula of the right shoulder. The patient's head was placed on a foam headrest and protective eyewear was placed and the extremities were well padded. The arm was draped free in order to manipulate the shoulder as necessary. The shoulder exam demonstrated good passive range of motion 170 degrees of forward flexion 90 degrees of external rotation 90 degrees of internal rotation. The shoulder was sterilely prepped and draped in the usual sterile fashion. An anterior deltopectoral approach was performed. A longitudinal incision was made in the interval. The skin was incised sharply and subcutaneous tissues dissected down to the fascia. The cephalic vein was identified and retracted laterally with the deltoid. Any crossing veins were tied off with silk ties and divided. The clavipectoral fascia was divided at the lateral margin of the conjoined tendon and divided up to the level of the coracoacromial ligament which was preserved. The upper 1 cm of the pectoralis was released for inferior exposure. The biceps tendon findings demonstrated marked tenosynovitis with a large fluid collection over the biceps extending below the pectoralis tendon. There was biceps tendinopathy in the groove and intra-articularly. The rotator cuff tendon findings demonstrated the rotator cuff is intact and the intra- articular rotator cuff had some minor undersurface fraying and synovitis from the arthritis.. The circumflex vessels were identified and tied off with silk ties and divided laterally. The fibers and subscapularis were split longitudinally at the level of the circumflex vessels down to the capsule and then reflected off the inferior capsule using a Kitner elevator. The axillary nerve was identified with a tug test and protected with a blunt Missy retractor. The rotator interval was opened up and extended down to the glenoid. The tenosynovitis around the biceps was resected and the biceps tendon was identified and tenodesed to the pectoralis tendon with [id number] #2 FiberWire sutures and the proximal biceps was resected. The subscapularis tendon was taken down with a trans-tendinous incision leaving a cuff of tissue for repair on the lesser tuberosity. The incision was carried down to the tendon and the capsule and a #1 Vicryl suture was placed into the free end of the subscapularis tendon. The capsule was subperiosteally dissected off the inferior neck of the humerus exposing the humeral osteophytes which demonstrated irregular large osteophytes from anterior to posterior.. The osteophytes were excised with an artist chisel and a rongeur. Humeral head was deformed and flattened and completely eburnated bone with substantial bone loss and flattening. The capsular release along the inferior neck of the humerus was completed. The humerus was then retracted posterior to the glenoid with a Fukuda retractor. The remainder of the biceps tendon and labrum was resected. The glenoid findings demonstrated concentric wear with findings consistent with the CT scan. There was some small peripheral osteophytes. There was complete loss of articular cartilage with eburnated bone.. I did an anterior inferior and posterior inferior release with electrocautery on bone and a Quiroga elevator with the axillary nerve continuing to be protected with the blunt Hohmann retractor inferiorly. When the releases were completed and the humeral head was exposed with some extension and external rotation and in anatomic head cut was made using the oscillating saw. The simplicity total shoulder arthroplasty was used including the pegged glenoid component. Attention was first taken to preparation of the humerus. The humerus was sized for a #1 nucleus and the guidepin was placed centrally and the surface reamer used followed by the reamer for the nucleus and the trial nucleus was placed followed by the cut protector. Attention was taken to the glenoid. Proper glenoid retractors were placed. Based on the CT scan a 5 degree anterior angled guide was used to make the central guidepin followed by the appropriate reamer for the medium glenoid. A minimal amount of reaming was performed followed by the drill for the central peg and peripheral pegs. Trial was placed and had an excellent fit. The trial was removed and the glenoid was irrigated with pulsatile lavage antibiotic solution and the drill holes were dried and packed with epinephrine-soaked tampons for hemostasis. The [place] G cement was vacuum mixed. The final component was cemented into position and held in position with pressure until the cement cured. A humeral head trial was placed. A trial reduction was performed and the soft tissue balancing heads were required as there was some posterior laxity. This required a 48 x 21 humeral head. The trials were remov ed cuff retractor was placed the head was retracted posteriorly a posterior capsular shift was performed with #1 Vicryl sutures. 3 drill holes were made into the hard bone in the bicipital groove lateral to the lesser tuberosity and 3 #5 FiberWire transosseous sutures were placed for repair of the subscapularis. Bone graft was placed into a cyst that was noted on the surface of the humeral cut and some bone graft placed to enhance press-fit fixation around the nucleus. The #1 nucleus was seated but not fully seated leaving it slightly proud until the 48 x 21 simplicity humeral head was placed into the nucleus and then both impacted together with a tight press-fit. The humerus was reduced to the glenoid and stability verified. The subscapularis was repaired with the #5 FiberWire sutures in a Espinoza-Nelson suture technique and lateral row fixation with [id number] #2 FiberWire in the soft tissue. The rotator interval was closed and maximal external rotation. The pectoralis was then closed with [id number] #2 FiberWire suture. The sutures were passed through the biceps tendon as well to reinforce the biceps tenodesis. 2 Hemovac drains were placed. The deltopectoral interval was closed with [id number] #1 Vicryl sutures. The subcutaneous tissues were closed with interrupted 2-0 Vicryl and the skin was closed with marcelino and a sterile dressing was applied. The patient tolerated the procedure well. Mandy eBtancourt and Layton GREWAL my physician assistants both assisted in soft tissue retraction instrument management suture management and assisted in the subcutaneous and skin closure and will participate in the postoperative care the patient. I attest to the content of the Intraoperative Record and any orders documented therein. Any exceptions are noted below.
--- NOTE | 2023-02-05 12:40 | Anesthesiology Progress Note ---
Date of Service February 05, 2023 Anesthesia Post Procedure Vital Signs Vital Signs: Temp Pulse Pulse Resp BP Pulse Ox O2 Del Method 02/05/23 12:30 36 C L 80 18 110/78 93 Nasal Cannula 02/05/23 12:20 74 17 111/73 95 Oxymask 02/05/23 12:10 81 23 99/66 L 93 Oxymask 02/05/23 12:00 36 C L 77 18 111/76 95 Oxymask 02/05/23 07:24 36.5 C 84 18 127/96 97 Room Air O2 Flow Rate 02/05/23 12:30 2 02/05/23 12:20 5 02/05/23 12:10 5 02/05/23 12:00 5 02/05/23 07:24 Pain Intensity Right Shoulder: Pain Intensity: 4 Transfer of Care Handoff Completed per policy Notes Mental Status: alert / awake / arousable Patient Amnestic to Procedure: Yes Nausea / Vomiting: adequately controlled Pain: adequately controlled Airway Patency, RR, SpO2: stable & adequate BP & HR: stable & adequate Hydration State: stable & adequate Anesthetic Complications: no major complications apparent
--- NOTE | 2023-02-05 12:44 | XRay Report ---
XR shoulder RT min 2V routine CLINICAL HISTORY: Post shoulder surgery TECHNIQUE: 3 views of the right shoulder were obtained. Comparison: Comparison is made to chest radiograph 04/15/2017 FINDINGS: Patient is status post shoulder arthroplasty with expected postsurgical changes including soft tissue swelling and subcutaneous emphysema. No periarticular lucency or hardware fracture is seen. IMPRESSION: Expected postoperative appearance status post placement of shoulder arthroplasty. ACT 112: Negative or not required by law. Electronically signed by: Mumtaz Hernandez M.D. 02/05/2023 12:43 PM
[2023-02-05] MEDS ORDERED: MAGNESIUM HYDROXIDE SUSP 30 ML UDC PO PRN (13:26)
[2023-02-05] MEDS ORDERED: NALOXONE HCL 0.4 MG/1 ML VIAL/CARP IV PRN (13:26)
[2023-02-05] MEDS ORDERED: HYDROmorphone INJ 0.5 MG/0.5 ML SYR IV PRN (13:26)
[2023-02-05] MEDS ORDERED: SODIUM CHLORIDE 0.9% 1000ML 1,000 ML IV SCH (13:26)
[2023-02-05] MEDS ORDERED: METOCLOPRAMIDE HCL INJ 5 MG/ML 2 ML VIAL IV PRN (13:26)
[2023-02-05] MEDS ORDERED: diphenhydrAMINE Capsule 25 MG CAP PO PRN (13:26)
[2023-02-05] MEDS ORDERED: bisacodyL 10 MG SUPP PR PRN (13:26)
[2023-02-05] MEDS ORDERED: oxyCODONE HCL IR 5 MG TAB (IMMEDIATE RELEASE) PO PRN (13:26)
[2023-02-05] MEDS ORDERED: ALPRAZolam 0.25 MG TABLET PO PRN (13:26)
[2023-02-05] MEDS ORDERED: SENNA 8.6 MG TAB PO PRN (14:05)
[2023-02-05] MEDS: ACETAMINOPHEN 500 MG TAB PO SCH ×2 (14:29→20:30)
--- NOTE | 2023-02-05 15:16 | Hospitalist Consultation ---
Date of Consultation February 05, 2023 Assessment & Plan (1) Primary osteoarthritis, right shoulder: s/ p Right stemless total Shoulder Arthroplasty(Right), biceps tenodesis, biceps tenosynovectomy, posterior capsular shift- Moisés Sanchez MD EBL 150cc Ancef abx karan-operatively Pain control/bowel regimen/PT/OT/DVT prophylaxis per primary service Monitor labs in AM (2) Hypertension: HTN/HLD On verapamil 100mg HS, indapamide 2.5mg daily, spironolactone 25mg, rosuvastatin 40mg BP stable currently 133/[address] hold for indapamide for AM until eval BUN/Cr and BP prior to restarting (3) Hypothyroidism: Continue Synthroid 88mcg daily Patient states had TSH checked w/ PCP 2 weeks ago and was normal (4) GERD (gastroesophageal reflux disease): on protonix 40mg daily, continued no increased reflux symptoms reported but monitor/increase if needed (5) Anxiety: Xanax 0.25mg BID PRN Bupropion HCL 200mg BID symptoms controlled at present, no need for medication at this time (6) Hypercalcemia: ca 10.2 on pre-op labs on vitamin D -- cholecalciferol 125mcg daily check Vit D/ca level in AM Plan Thank you for allowing hospitalist service to participate in the care of Ms Diana. Hospitalist service will follow along. Please call with any questions/concerns Supervising Physician Co-Signing Physician Notes I personally saw and examined the patient. I verified all walsh points and agree with Jessica Hager PA-C with the following exceptions and/or additions: 67 year old female POD#0 right shoulder arthroplasty. EBL 150ml. O/E some tingling in 1st and 2nd digits, no motor weakness in hand, HS RRR, no murmurs, Chest CTAB, Abdo SNT A/P Pain/VTE/Bowel management per primary orthopedic team HTN/hypothyroidism/HLD/GERD/Anxiety chronic management as above History of Present Illness Reason for Consultation: medical management Requesting Physician: Dr Sanchez Attending Physician: Moisés Sanchez MD History of Present Illness 67yo with PMHx significant for HTN, HLD, hypothyroidism, lung ca presented for surgery for her RIGHT shoulder after failure of conservative outpatient treatment. Patient evaluated following surgery in room 308, doing well, resting upon initial evaluation but awoke easily. Pain controlled, no chest pain or shortness of breath. Some slight numbness/tingling in her right thumb but otherwise sensation intact. No fever/chills, nausea, vomiting, abdominal pain or other issues at this time. Medications verified. Takes xanax as needed and discussed available prn. Hx lung ca s/p resection ~6 years ago this january, carcinoid tumor, was following for 5 years and no longer requiring any further treatment per patient. Hx hypothyroidism -- states she had her TSH level checked ~2 weeks ago and was normal. Discussed elevated Ca level and on vit d supplementation and will check level in am for further eval if she needs to be continued on this. Prior study in system w/ stress testing Aug 2021 w/ normal RV/systolic function. No evidence for inducible ischemia. She reports gotten w/ [facility] and did a wellness program and checked everything out over 2 days and does follow up from time to time. Allergies Allergy/AdvReac Type Severity Reaction Status Date / Time No Known Allergies Allergy Verified 02/05/23 06:55 Home Medications Medication Instructions Recorded Confirmed Type Probiotic And Digestive Enzyme 1 cap PO BID 01/20/23 02/05/23 History alprazolam 0.25 mg tablet (Xanax) 0.25 mg PO BID PRN Anxiety 01/20/23 02/05/23 History bupropion HCl 200 mg tablet,12 hr 200 mg PO BID 01/20/23 02/05/23 History sustained-release cetirizine 10 mg tablet (Zyrtec) 10 mg PO DAILY PRN allergies 01/20/23 02/05/23 History cholecalciferol (vitamin D3) 125 125 mcg PO HS 01/20/23 02/05/23 History mcg (5,000 unit) tablet (Vitamin D3) indapamide 2.5 mg tablet 2.5 mg PO QAM 01/20/23 02/05/23 History levothyroxine 88 mcg tablet 88 mcg PO QAM 01/20/23 02/05/23 History (Synthroid) magnesium 1 tab PO HS 01/20/23 02/05/23 History pantoprazole 40 mg tablet,delayed 40 mg PO QAM 01/20/23 02/05/23 History release potassium chloride 99 mcg PO HS 01/20/23 02/05/23 History spironolactone 25 mg tablet 25 mg PO QAM 01/20/23 02/05/23 History verapamil 100 mg capsule 24hr 100 mg PO HS 01/20/23 02/05/[address],ext.release vit C 250 mg-vit E 90 mg-zinc 40 1 tab PO BID 01/20/23 02/05/23 History mg-copper 1 [id number] capsule (PreserVision AREDS-2) rosuvastatin 40 mg tablet 40 mg QPM 01/23/23 02/05/23 History sennosides 8.6 mg capsule (senna) 8.6 mg PO DAILY PRN Constipation 02/05/23 02/05/23 History acetaminophen 500 mg tablet 1,000 mg PO Q8 14 days #84 tabs 02/06/23 Rx (Tylenol Extra Strength) aspirin 81 mg tablet,delayed 81 mg PO BID 30 days #60 tabs 02/06/23 Rx release oxycodone 5 mg tablet 5 mg PO Q4H PRN pain #30 tabs 02/06/23 Rx Patient History Medical History Anxiety Family history of hemochromatosis GERD (gastroesophageal reflux disease) controlled, stable per pt Hx of cancer of lung 6 years ago, s/p lung resection "no other treatments necessary" Hypertension controlled, stable per pt Hypothyroidism Surgical History 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) History of open reduction and internal fixation (ORIF) procedure rt humerus Hx of arthrodesis left, triple arthrodesis of foot Hx of section x2 Hx of colonoscopy Hx of spinal fusion lumbar x 2 Hx of tonsillectomy Hx of total hysterectomy with removal of both tubes and ovaries Social History Smoking Status: Former smoker Smoking End Date: 20 years ago-only a social smoker at that time; Second Hand Exposure: No; Do You Dip or Chew Tobacco: No; Tobacco Cessation Education Requested by Patient: No Hx Alcohol Use: Yes Alcohol type: beer, wine and hard liquor Hx Substance Use: No Preferred Language: Iranian Communication Ability: Effective Thread Cutter Required: No Beliefs That Will Affect Care: None Current Living Situation: Spouse Other Information That Helps Us Care for You: No Feels Safe at Home: Yes Safety Concerns: Feels Safe At This Time Assistive Devices: Glasses Assistive Devices Comment: reading glasses prn Review of Systems Review of Systems: All systems reviewed & are unremarkable except as noted in HPI & below Physical Exam Physical Exam: General: WN/WD female resting in bed upon entry, easily awoken, NAD Resp: CTA, no w/c, on 2L post-op, no distress CV: RRR, no significant m/r/g, no pitting edema/calf tenderess GI: +BS, soft/NT : no hameed MSK/Neuro: sling to R shoulder, dressing c/d/i, drain w/ bloody drainage present tender to palpation along incision, sensation intact with exception slight numbness to distal right thumb able to squeeze my hand, machine presser strength intact pulses palpable Psych: AOx3, cooperative with examination Skin: perfused, no obvious lesions/rashes Results & Data Results & Data ([facility]) Vital Signs (Past 12 Hours) Vital Signs Temp Pulse Pulse Resp BP Pulse Ox O2 Del Method 02/05/23 14:15 36.4 C L 73 16 108/72 95 Nasal Cannula 02/05/23 14:01 Nasal Cannula 02/05/23 13:49 36.4 C L 74 16 111/75 94 Nasal Cannula 02/05/23 13:15 36.4 C L 72 16 112/73 94 Nasal Cannula 02/05/23 12:50 69 17 105/77 94 Nasal Cannula 02/05/23 12:40 76 18 112/77 93 Nasal Cannula 02/05/23 12:30 36 C L 80 18 110/78 93 Nasal Cannula 02/05/23 12:20 74 17 111/73 95 Oxymask 02/05/23 12:10 81 23 99/66 L 93 Oxymask 02/05/23 12:00 36 C L 77 18 111/76 95 Oxymask 02/05/23 07:24 36.5 C 84 18 127/96 97 Room Air O2 Flow Rate 02/05/23 14:15 2 02/05/23 14:01 3 02/05/23 13:49 3 02/05/23 13:15 2 02/05/23 12:50 2 02/05/23 12:40 2 02/05/23 12:30 2 02/05/23 12:20 5 02/05/23 12:10 5 02/05/23 12:00 5 02/05/23 07:24 Laboratory Results 02/05/23 Range/Units Unknown SARS-CoV-2, RNA, NAAT NEGATIVE (NEGATIVE) Diagnostic Findings Shoulder X-Ray 02/05/23 12:08 XR shoulder RT min 2V routine CLINICAL HISTORY: Post shoulder surgery TECHNIQUE: 3 views of the right shoulder were obtained. Comparison: Comparison is made to chest radiograph 04/15/2017 FINDINGS: Patient is status post shoulder arthroplasty with expected postsurgical changes including soft tissue swelling and subcutaneous emphysema. No periarticular lucency or hardware fracture is seen. IMPRESSION: Expected postoperative appearance status post placement of shoulder arthroplasty. ACT 112: Negative or not required by law. Electronically signed by: Mumtaz Hernandez M.D. 02/05/2023 12:43 PM PG Care Time/CCT Total # of Minutes Spent Total Time Spent with Patient: Total time spent is greater than 50% in coordination of care (as documented) at patient's floor/unit and/or counseling patient: Coding Level of Care Code 39762 IN/OBS CONSULT LVL 3,45M Diagnoses Primary osteoarthritis, right shoulder M19.011 Hypertension I10 Hypothyroidism E03.9 GERD (gastroesophageal reflux disease) K21.9 Anxiety F41.9 Hypercalcemia E83.52
[2023-02-05] MEDS: ceFAZolin 2000MG 2,000 MG/15 ML SYR IV SCH (18:06)
[2023-02-05] MEDS: CEROVITE ADV FORMULA TAB PO SCH (20:02)
[2023-02-05] MEDS: buPROPion SR 100 MG TABCR PO SCH (20:28)
[2023-02-05] MEDS: ASPIRIN 81 MG ECTAB PO SCH (20:28)
[2023-02-05] MEDS: ADVANCED PROBIOTIC 1250 MG CAPSULE PO SCH (20:29)
[2023-02-05] MEDS: DOCUSATE SODIUM 100 MG CAP PO SCH (20:29)
[2023-02-05] MEDS ORDERED: POTASSIUM CHLORIDE PO SCH (21:00)
[2023-02-05] MEDS ORDERED: VERAPAMIL 100 MG PO SCH (21:00)
[2023-02-05] MEDS ORDERED: SENNA 8.6 MG TAB PO SCH (21:00)
[2023-02-05] MEDS ORDERED: ROSUVASTATIN CALCIUM 20 MG TAB PO SCH (21:00)
[2023-02-05] MEDS ORDERED: CHOLECALCIFEROL 5,000 UNITS 125 MCG TAB PO SCH (21:00)
[2023-02-05] MEDS ORDERED: NON-FORMULARY MEDICATION (Magnesium Tablet) PO SCH (21:00)
[2023-02-05] MEDS: CETIRIZINE HCL 10 MG TABLET PO PRN (22:11)
[2023-02-06] MEDS: ceFAZolin 2000MG 2,000 MG/15 ML SYR IV SCH (01:59)
[2023-02-06] MEDS: ACETAMINOPHEN 500 MG TAB PO SCH (05:58)
[2023-02-06 06:28] LABS: Basophils # (auto) 0.02 K/uL (0-0.2); Basophils % (auto) 0.2 %; Eosinophils # (auto) 0.01 K/uL (0-0.50); Eosinophils % (auto) 0.1 %; Hematocrit (blood only) 33.8 % (37.0-47.0); Hemoglobin 11.9 g/dl (12.0-16.0); Immature Granulocytes # (auto) 0.05 K/uL (0.01-0.20); Immature Granulocytes % (auto) 0.4 %; Lymphocytes # (auto) 1.19 K/uL (1.2-3.4); Mean Corpuscular Hemoglobin 32.1 pg (25.0-34.0); Mean Corpuscular Hgb Conc 35.2 g/dL (32.0-36.0); Mean Corpuscular Volume 91.1 fL (80.0-100.0); Mean Platelet Volume 9.9 fL (9.4-12.4); Monocytes # (auto) 1.21 K/uL (0.11-0.59); Monocytes % (auto) 9.2 %; Neutrophils # (auto) 10.72 K/uL (1.40-6.50); Neutrophils % (auto) 81.1 %; Platelet Count 236 K/uL (130-400); RDW Coefficient of Variation 13.1 % (11.5-14.5); RDW Standard Deviation 43.5 fL (36.4-46.3); Red Blood Count 3.71 M/uL (4.20-5.40)
[2023-02-06 06:49] LABS: Albumin Level 3.9 gm/dl (3.4-5.0); BUN Creatinine Ratio 27.5 (10-20); Creatinine Clr Calc Pharmacy 83.5 ml/min; Est GFR (African American) 105.9 ml/min; Est GFR (Non-African American) 91.4 ml/min; Magnesium 1.9 mg/dl (1.7-2.4)
[2023-02-06] MEDS ORDERED: POTASSIUM CHLORIDE CRTAB 20 MEQ TABCR PO STA (07:46)
[2023-02-06] MEDS: ADVANCED PROBIOTIC 1250 MG CAPSULE PO SCH (08:05)
[2023-02-06] MEDS: CEROVITE ADV FORMULA TAB PO SCH (08:07)
[2023-02-06] MEDS: ASPIRIN 81 MG ECTAB PO SCH (08:08)
[2023-02-06] MEDS: DOCUSATE SODIUM 100 MG CAP PO SCH (08:08)
[2023-02-06] MEDS: buPROPion SR 100 MG TABCR PO SCH (08:08)
--- NOTE | 2023-02-06 08:42 | Orthopedic Progress Note ---
Date of Service February 06, 2023 Assessment & Plan (1) Primary osteoarthritis, right shoulder: Plan: Postop day 1 status post right total shoulder arthroplasty PT/OT protocols. Minimal PT at this time secondary to posterior capsular shift. We will plan for reverse TSA type restrictions at this time. DVT prophylaxis-aspirin p.o. twice daily Pain management as written Hypokalemia-potassium is down to 3.0 today. Patient has already been given 40 mEq orally this morning. Hospitalist service aware. Will discuss postoperative management. DC planning-patient is planning for discharge to home with plans for outpatient PT to start when Dr. Sanchez feels she is ready. Admission and Anticipated Discharge Date Admission Date: February 05, 2023 Subjective Postop day 1 Patient ambulating in her room independently. No complaints this morning. Pain is controlled. She is hoping to go home today. Physical Exam Physical Exam: Dressings are clean, dry, and intact. Sling is in place. She has good range of motion actively of her wrist and fingers. He has good strength with her right hand and fingers. She does states she has some residual decree sensation in the index and thumb which is getting better by the hour. Capillary refill is less than 2 seconds. Results & Data ([facility]) Vital Signs (Past 12 Hours) Vital Signs Temp Pulse Pulse Resp BP Pulse Ox O2 Del Method 02/06/23 08:31 36.7 C 75 20 121/80 94 Room Air 02/06/23 03:10 36.8 C 79 20 117/76 94 Room Air 02/05/23 23:34 36.9 C 89 18 130/85 98 Room Air Laboratory Results Laboratory Results WBC 13.20 K/ul (4.8-10.8) H 02/06/23 05:46 RBC 3.71 M/uL (4.20-5.40) L 02/06/23 05:46 Hgb 11.9 g/dl (12.0-16.0) L 02/06/23 05:46 Hct 33.8 % (37.0-47.0) L 02/06/23 05:46 MCV 91.1 fL (80.0-100.0) 02/06/23 05:46 MCH 32.1 pg (25.0-34.0) 02/06/23 05:46 MCHC 35.2 g/dL (32.0-36.0) 02/06/23 05:46 RDW Std Deviation 43.5 fL (36.4-46.3) 02/06/23 05:46 RDW Coeff of Breanna 13.1 % (11.5-14.5) 02/06/23 05:46 Plt Count 236 K/uL (130-400) 02/06/23 05:46 MPV 9.9 fL (9.4-12.4) 02/06/23 05:46 Immature Gran % (Auto) 0.4 % 02/06/23 05:46 Neut % (Auto) 81.1 % 02/06/23 05:46 Lymph % (Auto) 9.0 % 02/06/23 05:46 [place] % (Auto) 9.2 % 02/06/23 05:46 Eos % (Auto) 0.1 % 02/06/23 05:46 Baso % (Auto) 0.2 % 02/06/23 05:46 Neut # (Auto) 10.72 K/uL (1.40-6.50) H 02/06/23 05:46 Lymph # (Auto) 1.19 K/uL (1.2-3.4) L 02/06/23 05:46 [place] # (Auto) 1.21 K/uL (0.11-0.59) H 02/06/23 05:46 Eos # (Auto) 0.01 K/uL (0-0.50) 02/06/23 05:46 Baso # (Auto) 0.02 K/uL (0-0.2) 02/06/23 05:46 Immature Gran # (Auto) 0.05 K/uL (0.01-0.20) 02/06/23 05:46 Sodium 139 mmol/L (136-145) 02/06/23 05:46 Potassium 3.0 mmol/L (3.5-5.1) L 02/06/23 05:46 Chloride 104 mmol/L (98-107) 02/06/23 05:46 Carbon Dioxide 31 mmol/L (21-32) 02/06/23 05:46 Anion Gap 4 (3-11) 02/06/23 05:46 BUN 19 mg/dl (6-23) 02/06/23 05:46 Creatinine 0.69 mg/dl (0.6-1.2) 02/06/23 05:46 Est Cr Clr Drug Dosing 83.5 ml/min 02/06/23 05:46 Est GFR ( Amer) 105.9 ml/min 02/06/23 05:46 Est GFR (Non-Af Amer) 91.4 ml/min 02/06/23 05:46 BUN/Creatinine Ratio 27.5 (10-20) H 02/06/23 05:46 Glucose 101 mg/dl (70-99(Fasting)) H 02/06/23 05:46 Calcium 9.0 mg/dl (8.5-10.1) 02/06/23 05:46 Magnesium 1.9 mg/dl (1.7-2.4) 02/06/23 05:46 Albumin 3.9 gm/dl (3.4-5.0) 02/06/23 05:46 25-OH Vitamin D Total 47.0 ng/ml (30-100) 02/06/23 05:46 SARS-CoV-2, RNA, NAAT NEGATIVE (NEGATIVE) 02/05/23 Unknown Impressions Shoulder X-Ray 02/05/23 12:08 XR shoulder RT min 2V routine CLINICAL HISTORY: Post shoulder surgery TECHNIQUE: 3 views of the right shoulder were obtained. Comparison: Comparison is made to chest radiograph 04/15/2017 FINDINGS: Patient is status post shoulder arthroplasty with expected postsurgical changes including soft tissue swelling and subcutaneous emphysema. No periarticular lucency or hardware fracture is seen. IMPRESSION: Expected postoperative appearance status post placement of shoulder arthroplasty. ACT 112: Negative or not required by law. Electronically signed by: Mumtaz Hernandez M.D. 02/05/2023 12:43 PM
--- NOTE | 2023-02-06 08:50 | Hospitalist Progress Note ---
Date of Service February 06, 2023 Assessment & Plan (1) Primary osteoarthritis, right shoulder: Plan: POD# 1 s/ p Right stemless total Shoulder Arthroplasty(Right), biceps tenodesis, biceps tenosynovectomy, posterior capsular shift- Moisés Sanchez MD EBL 150cc Ancef abx karan-operatively Pain control/bowel regimen/PT/OT/DVT prophylaxis per primary service WBC elevation likely from stress/surgery/steroids. Afebrile Chemistries reviewed and K 3.0, PO replacement ordered and held her indapamide. Discussed with patient to hold for today and can resume tomorrow and patient can increase K intake at home/bananas. Patient does endorse she does usually eat more potassium in her diet than she has had inpatient. Ortho having labs ordered to repeat in a week -- discussed with patient about follow up with PCP if any abn to consider increasing the spironolactone/decrease the indapamide or can place on oral supplementation. Mag wnl at 1.9 (2) Hypertension: Plan: HTN/HLD On verapamil 100mg HS, indapamide 2.5mg daily, spironolactone 25mg, rosuvastatin 40mg BP stable Held indapamide, K 3.0 -- see above Resume indapamide for tomorrow and repeat labs outpatient (3) Hypothyroidism: Plan: Continue Synthroid 88mcg daily Patient states had TSH checked w/ PCP 2 weeks ago and was normal (4) GERD (gastroesophageal reflux disease): Plan: on protonix 40mg daily, continued no increased reflux symptoms reported but monitor/increase if needed (5) Anxiety: Plan: Xanax 0.25mg BID PRN Bupropion HCL 200mg BID symptoms controlled at present, no need for medication at this time (6) Hypercalcemia: Plan: ca 10.2 on pre-op labs on vitamin D -- cholecalciferol 125mcg daily Vit D level wnl, Ca 9.0 -- patient is on diuretic and could cause mild elevations of note F/u PCP Plan Thank you for allowing hospitalist service to participate in the care of Ms Diana. Hospitalist service will sign off. Please call with any questions/concerns. Admission and Anticipated Discharge Date Admission Date: February 05, 2023 Supervising Physician Co-Signing Physician Notes The patient was not seen by me. The chart was reviewed. Case discussed with CARMINA Sheldon. Agree with assessment and plan Subjective eval this morning, doing well pain controlled sensation to shoulder returning has some tingling to her thumb/index/middle finger but numbness resolved and sensation to touch intact. no fever/chills/chest pain/shortness of breath. waiting for discharge, from [facility]. Discussed holding her indapamide this morning given Low K and ordered PO replacement but continued spironolactone. Encouraged to eat banana a day at home. Patient does endorse she isn't eating like she usually does at home and does eat potassium rich foods. Questions/concerns addressed. Case discussed with Layton from surgery and planning dc today. Review of Systems Review of Systems: All systems reviewed & are unremarkable except as noted in HPI & below Physical Exam Physical Exam: General: WN/WD female sitting up in chair, dressed and anticipating discharge, NAD Resp: CTA, no w/c, on room air CV: RRR, no significant m/r/g, no pitting edema/calf tenderness GI: +BS, soft/NT : no hameed MSK/Neuro: sling to R shoulder, dressing c/d/i, drain w/ bloody drainage present tender to palpation along incision, sensation returning no further numbness to thumb, reports tingling to thumb/index/middle finger but sensation to pressure intact. lead oxide mill tender strength great, equal bilaterally, pulses palpable Psych: AOx3, cooperative with examination Skin: perfused, no obvious lesions/rashes Results & Data Results & Data ([facility]) Vital Signs (Past 12 Hours) Vital Signs Temp Pulse Pulse Resp BP Pulse Ox O2 Del Method 02/06/23 08:31 36.7 C 75 20 121/80 94 Room Air 02/06/23 03:10 36.8 C 79 20 117/76 94 Room Air 02/05/23 23:34 36.9 C 89 18 130/85 98 Room Air Laboratory Results 02/06/23 02/06/23 02/06/23 Range/Units 05:46 05:46 05:46 WBC 13.20 H (4.8-10.8) K/ul RBC 3.71 L (4.20-5.40) M/uL Hgb 11.9 L (12.0-16.0) g/dl Hct 33.8 L (37.0-47.0) % MCV 91.1 (80.0-100.0) fL MCH 32.1 (25.0-34.0) pg MCHC 35.2 (32.0-36.0) g/dL RDW Std Deviation 43.5 (36.4-46.3) fL RDW Coeff of Breanna 13.1 (11.5-14.5) % Plt Count 236 (130-400) K/uL MPV 9.9 (9.4-12.4) fL Immature Gran % (Auto) 0.4 % Neut % (Auto) 81.1 % Lymph % (Auto) 9.0 % [place] % (Auto) 9.2 % Eos % (Auto) 0.1 % Baso % (Auto) 0.2 % Neut # (Auto) 10.72 H (1.40-6.50) K/uL Lymph # (Auto) 1.19 L (1.2-3.4) K/uL [place] # (Auto) 1.21 H (0.11-0.59) K/uL Eos # (Auto) 0.01 (0-0.50) K/uL Baso # (Auto) 0.02 (0-0.2) K/uL Immature Gran # (Auto) 0.05 (0.01-0.20) K/uL Sodium 139 (136-145) mmol/L Potassium 3.0 L (3.5-5.1) mmol/L Chloride 104 (98-107) mmol/L Carbon Dioxide 31 (21-32) mmol/L Anion Gap 4 (3-11) BUN 19 (6-23) mg/dl Creatinine 0.69 (0.6-1.2) mg/dl Est Cr Clr Drug Dosing 83.5 ml/min Est GFR ( Amer) 105.9 ml/min Est GFR (Non-Af Amer) 91.4 ml/min BUN/Creatinine Ratio 27.5 H (10-20) Glucose 101 H (70-99(Fasting)) mg/dl Calcium 9.0 (8.5-10.1) mg/dl Magnesium 1.9 (1.7-2.4) mg/dl Albumin 3.9 (3.4-5.0) gm/dl 25-OH Vitamin D Total 47.0 (30-100) ng/ml Diagnostic Findings Shoulder X-Ray 02/05/23 12:08 XR shoulder RT min 2V routine CLINICAL HISTORY: Post shoulder surgery TECHNIQUE: 3 views of the right shoulder were obtained. Comparison: Comparison is made to chest radiograph 04/15/2017 FINDINGS: Patient is status post shoulder arthroplasty with expected postsurgical changes including soft tissue swelling and subcutaneous emphysema. No periarticular lucency or hardware fracture is seen. IMPRESSION: Expected postoperative appearance status post placement of shoulder arthroplasty. ACT 112: Negative or not required by law. Electronically signed by: Mumtaz Hernandez M.D. 02/05/2023 12:43 PM PG Care Time/CCT Total # of Minutes Spent Total Time Spent with Patient: Total time spent is greater than 50% in coordination of care (as documented) at patient's floor/unit and/or counseling patient: Coding Level of Care Code 25542 SUB INP/OBS CARE 2/35MIN Diagnoses Primary osteoarthritis, right shoulder M19.011 Hypertension I10 Hypothyroidism E03.9 GERD (gastroesophageal reflux disease) K21.9 Anxiety F41.9 Hypercalcemia E83.52
[2023-02-06] MEDS ORDERED: LEVOTHYROXINE SODIUM 88 MCG TABLET PO SCH (09:00)
[2023-02-06] MEDS ORDERED: PANTOprazole 40 MG TAB PO SCH (09:00)
[2023-02-06] MEDS ORDERED: INDAPAMIDE 1.25 MG TAB PO SCH (09:00)
[2023-02-06] MEDS ORDERED: SPIRONOLACTONE 25 MG TAB PO SCH (09:00)
[2023-02-06] MEDS ORDERED: MULTIVITAMIN TAB PO SCH (09:00)
--- NOTE | 2023-02-06 09:51 | Discharge Summary ---
Date of Service February 06, 2023 Admission HPI Per Admitting Provider 67-year-old female with past medical history significant for hypertension, hypothyroidism, history of lung CA who presents with longstanding right shoulder pain. Patient has failed conservative measures. Pain is interfering with her daily activities. She would like to proceed with surgical intervention. Patient denies headaches, sweats, fevers, chills, double vision, blurred vision, cough, sore throat, dysphagia, chest pain, sob, wheezing, n/v/d/c, numbness, tingling, fatigue, urinary symptoms, mood disorders. ROS positive for right shoulder pain and stiffness. Admission Exam Per Admitting Provider Constitutional: well developed and well nourished; no acute distress Eyes: PERRL, conjunctivae normal, anicteric sclerae ENMT: external ear and nose normal, oropharynx normal Neck: trachea midline, no thyromegaly Respiratory: normal respiratory effort, lungs clear to auscultation Cardiovascular: RRR, no murmur, no edema Musculoskeletal: Right shoulder: Diffuse tenderness most severe anterior glenoid. Crepitation with range of motion. She has positive impingement signs. Has painful range of motion in all directions. Abduction to 70 degrees, forward flexion to 140 degrees, external rotation to 45 degrees. Skin: no rashes, warm and dry Neurologic: patellar DTR's 2+ bilat, sensation intact Psychiatric: A+Ox3, euthymic affect Principal Diagnosis Right shoulder osteoarthritis Discharge Data Allergies Allergy/AdvReac Type Severity Reaction Status Date / Time No Known Allergies Allergy Verified 02/05/23 06:55 Consultations 02/02/23 11:52 Consult Hospitalist Routine Procedures Performed Operation Date: 02/05/23 09:10 Actual Procedures p Right Total Shoulder Arthroplasty(Right) - Moisés Sanchez MD Ordered Studies 02/05/23 05:00 US - OR guided needle placemen Routine Hospital Course (1) Primary osteoarthritis, right shoulder: Date of Service February 06, 2023 Assessment & Plan (1) Primary osteoarthritis, right shoulder: Plan: Postop day 1 status post right total shoulder arthroplasty PT/OT protocols. Minimal PT at this time secondary to posterior capsular shift. We will plan for reverse TSA type restrictions at this time. DVT prophylaxis-aspirin p.o. twice daily Pain management as written Hypokalemia-potassium is down to 3.0 today. Patient has already been given 40 mEq orally this morning. Hospitalist service aware. Will discuss postoperative management. DC planning-patient is planning for discharge to home with plans for outpatient PT to start when Dr. Sanchez feels she is ready. Discussed with Jessica Hager PA-C. Rx placed in chart for repeat BMP next week. Continue home dose of potassium. Admission and Anticipated Discharge Date Admission Date: February 05, 2023 Subjective Postop day 1 Patient ambulating in her room independently. No complaints this morning. Pain is controlled. She is hoping to go home today. Physical Exam Physical Exam: Dressings are clean, dry, and intact. Sling is in place. She has good range of motion actively of her wrist and fingers. He has good strength with her right hand and fingers. She does states she has some residual decree sensation in the index and thumb which is getting better by the hour. Capillary refill is less than 2 seconds. Results & Data ([facility]) Vital Signs (Past 12 Hours) Vital Signs Temp Pulse Pulse Resp BP Pulse Ox O2 Del Method 02/06/23 08:31 36.7 C 75 20 121/80 94 Room Air 02/06/23 03:10 36.8 C 79 20 117/76 94 Room Air 02/05/23 23:34 36.9 C 89 18 130/85 98 Room Air Laboratory Results Laboratory Results WBC 13.20 K/ul (4.8-10.8) H 02/06/23 05:46 RBC 3.71 M/uL (4.20-5.40) L 02/06/23 05:46 Hgb 11.9 g/dl (12.0-16.0) L 02/06/23 05:46 Hct 33.8 % (37.0-47.0) L 02/06/23 05:46 MCV 91.1 fL (80.0-100.0) 02/06/23 05:46 MCH 32.1 pg (25.0-34.0) 02/06/23 05:46 MCHC 35.2 g/dL (32.0-36.0) 02/06/23 05:46 RDW Std Deviation 43.5 fL (36.4-46.3) 02/06/23 05:46 RDW Coeff of Breanna 13.1 % (11.5-14.5) 02/06/23 05:46 Plt Count 236 K/uL (130-400) 02/06/23 05:46 MPV 9.9 fL (9.4-12.4) 02/06/23 05:46 Immature Gran % (Auto) 0.4 % 02/06/23 05:46 Neut % (Auto) 81.1 % 02/06/23 05:46 Lymph % (Auto) 9.0 % 02/06/23 05:46 [place] % (Auto) 9.2 % 02/06/23 05:46 Eos % (Auto) 0.1 % 02/06/23 05:46 Baso % (Auto) 0.2 % 02/06/23 05:46 Neut # (Auto) 10.72 K/uL (1.40-6.50) H 02/06/23 05:46 Lymph # (Auto) 1.19 K/uL (1.2-3.4) L 02/06/23 05:46 [place] # (Auto) 1.21 K/uL (0.11-0.59) H 02/06/23 05:46 Eos # (Auto) 0.01 K/uL (0-0.50) 02/06/23 05:46 Baso # (Auto) 0.02 K/uL (0-0.2) 02/06/23 05:46 Immature Gran # (Auto) 0.05 K/uL (0.01-0.20) 02/06/23 05:46 Sodium 139 mmol/L (136-145) 02/06/23 05:46 Potassium 3.0 mmol/L (3.5-5.1) L 02/06/23 05:46 Chloride 104 mmol/L (98-107) 02/06/23 05:46 Carbon Dioxide 31 mmol/L (21-32) 02/06/23 05:46 Anion Gap 4 (3-11) 02/06/23 05:46 BUN 19 mg/dl (6-23) 02/06/23 05:46 Creatinine 0.69 mg/dl (0.6-1.2) 02/06/23 05:46 Est Cr Clr Drug Dosing 83.5 ml/min 02/06/23 05:46 Est GFR ( Amer) 105.9 ml/min 02/06/23 05:46 Est GFR (Non-Af Amer) 91.4 ml/min 02/06/23 05:46 BUN/Creatinine Ratio 27.5 (10-20) H 02/06/23 05:46 Glucose 101 mg/dl (70-99(Fasting)) H 02/06/23 05:46 Calcium 9.0 mg/dl (8.5-10.1) 02/06/23 05:46 Magnesium 1.9 mg/dl (1.7-2.4) 02/06/23 05:46 Albumin 3.9 gm/dl (3.4-5.0) 02/06/23 05:46 25-OH Vitamin D Total 47.0 ng/ml (30-100) 02/06/23 05:46 SARS-CoV-2, RNA, NAAT NEGATIVE (NEGATIVE) 02/05/23 Unknown Impressions Shoulder X-Ray 02/05/23 12:08 XR shoulder RT min 2V routine CLINICAL HISTORY: Post shoulder surgery TECHNIQUE: 3 views of the right shoulder were obtained. Comparison: Comparison is made to chest radiograph 04/15/2017 FINDINGS: Patient is status post shoulder arthroplasty with expected postsurgical changes including soft tissue swelling and subcutaneous emphysema. No periarticular lucency or hardware fracture is seen. IMPRESSION: Expected postoperative appearance status post placement of shoulder arthroplasty. ACT 112: Negative or not required by law. Electronically signed by: Mumtaz Hernandez M.D. 02/05/2023 12:43 PM Total Time Total Time Spent Total Time Spent (In Minutes): 5 Discharge Plan Discharge Items Patient Disposition: Home - Self-Care Reason For Visit: Right Shoulder Osteoarthritis Discharge Diagnosis: Right shoulder osteoarthritis Activity: Per Instructions section Weightbearing: Right non-weightbearing Non-emergency contact: Surgeon Call non-emergency contact if: you have any medication questions, your pain is not controlled, your temperature is above 101.5, your wound has increased redness and your wound has increased drainage Follow-up/Referrals: Moisés Sanchez MD [Surgeon] - (Follow-up with Dr. Sanchez or his PA in 2 weeks from the day of your surgery for your first postoperative visit.) Hamlet Paul M.D. [Primary Care Provider] - Diet: Regular Ambulatory Orders: Basic Metabolic Panel (Routine) Timeframe: [id number] Location: Determined by Patient Ordered By: Layton Lang Attending Provider Instructions: You will need to have your blood drawn next week to check your potassium level. Results should be sent to your primary care physician and to Dr. Sanchez. ACTIVITY RECOMMENDATIONS: SELF CARE INSTRUCTIONS AFTER TOTAL SHOULDER ARTHROPLASTY A. You may do daily exercises as taught in physical therapy while in hospital. No lifting with the operative arm. Physical therapy will be held at this time until You see Dr. Sanchez back in the office for your first postoperative visit. Specific restrictions will be written on your physical therapy prescription that is provided to you. B. You are to wear your sling/immobilizer at all times EXCEPT when performing your daily exercises, participating in physical therapy and for hygiene purposes. C. You may perform dry, daily dressing changes. Please keep your incision covered. You may shower 48 hours after surgery. Do not apply soap or any ointment/ lotions directly over incision. Do not soak incision in bath tub/swimming pool. D. You may use ice as needed to operative shoulder. SPECIAL CARE INSTRUCTIONS: MEDICATION INSTRUCTIONS: *It is recommended you take Aspirin 325mg daily for four weeks post-op. VERY IMPORTANT TO READ AND REVIEW A. There are a few signs you need to watch for after you are home. Call [facility] at [phone] if you experience any of the followin. Increased severe shoulder pain. Some pain is expected especially when you exercise. 2. Increased swelling in you shoulder or arm; pain or swelling in either upper extremity. 3. Any fluid drainage from the incision. 4. Shortness of breath or chest pain. B. Please call [facility] at [phone] if you have any questions or concerns about your operation or recovery. C. Call your physician if: 1. Temperature is greater than 101 degrees (F). 2. Pain is not relieved by prescribed pain medications. 3. Increase drainage or redness from incision. 4. Unanswered questions or concerns. FOLLOW UP VISIT: Please call [facility] at [phone] to schedule a follow up appointment with Dr. Sanchez or his PA in 12-14 days from your surgery date. Stand-Alone Forms: [employer] Smoking Cessation Medications and DC Order Prescriptions: New aspirin 81 mg Tablet,Delayed Release (Dr/Ec) 81 mg PO BID 30 Days Qty: 60 0RF acetaminophen [Tylenol Extra Strength] 500 mg Tablet 1,000 mg PO Q8 14 Days Qty: 84 0RF oxycodone 5 mg tablet 5 mg PO Q4H MDD 6 PRN (Reason: pain) Qty: 30 0RF Continued cetirizine [Zyrtec] 10 mg Tablet 10 mg PO DAILY PRN (Reason: allergies) indapamide 2.5 mg Tablet 2.5 mg PO QAM spironolactone 25 mg Tablet 25 mg PO QAM levothyroxine [Synthroid] 88 mcg Tablet 88 mcg PO QAM alprazolam [Xanax] 0.25 mg Tablet 0.25 mg PO BID PRN (Reason: Anxiety) pantoprazole 40 mg Tablet,Delayed Release (Dr/Ec) 40 mg PO QAM verapamil 100 mg Capsule, [address] 100 mg PO HS bupropion HCl 200 mg Tablet Sustained-Release 12 Hr 200 mg PO BID magnesium Tablet 1 tab PO HS cholecalciferol (vitamin D3) [Vitamin D3] 125 mcg (5,000 unit) Tablet 125 mcg PO HS PreserVision AREDS-2 250-90-40-1 mg Capsule 1 tab PO BID Probiotic And Digestive Enzyme 1 cap PO BID Patient Comments: one is fruit and one is vegetable potassium chloride 99 mcg PO HS rosuvastatin 40 mg Tablet 40 mg QPM senna 8.6 mg Capsule 8.6 mg PO DAILY PRN (Reason: Constipation) Discontinued naproxen sodium [Aleve] 220 mg Tablet 440 mg PO BID PRN (Reason: Pain) aspirin 81 mg Capsule 81 mg PO HS acetaminophen [Tylenol 8 Hour] 650 mg Tablet Extended Release 650 mg PO Q8H PRN (Reason: Pain, Mild) Discharge Orders: Discharge Order (Routine); Ordered 02/06/23 Ordered By: Layton Ramos Admission Data Admit Date/Time: 02/05/23 12:08 Attending Provider: Moisés Sanchez Admit Provider: Moisés Sanchez Primary Care Provider: Hamlet Paul Other Providers: Juan Francisco Hope Robert R.
[2023-02-06] MEDS: CETIRIZINE HCL 10 MG TABLET PO PRN (09:53)
== END 2023-02-06 12:19 | disposition home or self-care (01) ==
LOC: ASU 06:40 → 3E 12:08 → INTOOBSV 12:08
DX: Z20.822 Contact with and (suspected) exposure to COVID-19; I10 Essential (primary) hypertension; E03.9 Hypothyroidism, unspecified; M24.211 Disorder of ligament, right shoulder; E87.6 Hypokalemia; Z79.899 Other long term (current) drug therapy; Z96.7 Presence of other bone and tendon implants; K21.9 Gastro-esophageal reflux disease without esophagitis; Z79.82 Long term (current) use of aspirin; M75.21 Bicipital tendinitis, right shoulder; M19.011 Primary osteoarthritis, right shoulder; E83.52 Hypercalcemia; Z79.890 Hormone replacement therapy; F41.9 Anxiety disorder, unspecified; Z87.891 Personal history of nicotine dependence

== ENCOUNTER 2023-11-04 08:00 | Observation (INO) ==
--- NOTE | 2023-10-09 14:11 | PAT Medication Instructions ---
Medication Instructions Date of Service October 09, 2023 Home Medications Medication Instructions Recorded oxycodone 5 mg tablet 5 mg PO Q4H PRN pain #30 tabs 02/06/23 Medication List: Probiotic And Digestive Enzyme 1 cap PO BID alprazolam 0.25 mg tablet (Xanax) 0.25 mg PO BID PRN Anxiety bupropion HCl 200 mg tablet,12 hr sustained-release 300 mg PO QAM cetirizine 10 mg tablet (Zyrtec) 10 mg PO DAILY PRN allergies cholecalciferol (vitamin D3) 125 mcg (5,000 unit) tablet (Vitamin D3) 125 mcg PO HS indapamide 2.5 mg tablet 2.5 mg PO QAM levothyroxine 88 mcg tablet (Synthroid) 88 mcg PO QAM magnesium 1 tab PO HS pantoprazole 40 mg tablet,delayed release 40 mg PO QAM potassium chloride 99 mcg PO HS spironolactone 25 mg tablet 25 mg PO QAM verapamil 100 mg capsule 24hr pellet CT,ext.release 100 mg PO HS vit C 250 mg-vit E 90 mg-zinc 40 mg-copper 1 [id number] capsule (PreserVision AREDS-2) 1 tab PO BID rosuvastatin 40 mg tablet 40 mg PO QPM sennosides 8.6 mg capsule (senna) 8.6 mg PO DAILY PRN Constipation oxycodone 5 mg tablet 5 mg PO Q4H PRN pain aspirin 81 mg tablet,delayed release 81 mg PO HS ibuprofen 200 mg tablet (Advil) 200 mg PO Q6H PRN Pain MEDICATION INSTRUCTIONS: ASK your surgeon for instructions ibuprofen 200 mg tablet (Advil) 200 mg PO Q6H PRN Pain ASK your prescriber and surgeon aspirin 81 mg tablet,delayed release 81 mg PO HS STOP taking 2 weeks before surgery vit C 250 mg-vit E 90 mg-zinc 40 mg-copper 1 bk-hinsqa-xcikee capsule (PreserVision AREDS-2) 1 tab PO BID DO NOT take the morning of surgery Probiotic And Digestive Enzyme 1 cap PO BID spironolactone 25 mg tablet 25 mg PO QAM cetirizine 10 mg tablet (Zyrtec) 10 mg PO DAILY PRN allergies sennosides 8.6 mg capsule (senna) 8.6 mg PO DAILY PRN Constipation indapamide 2.5 mg tablet 2.5 mg PO QAM Take morning of surgery With a small sip of water, OTHERWISE NOTHING TO EAT OR DRINK AFTER MIDNIGHT: oxycodone 5 mg tablet 5 mg PO Q4H PRN pain (if needed) alprazolam 0.25 mg tablet (Xanax) 0.25 mg PO BID PRN Anxiety (if needed) pantoprazole 40 mg tablet,delayed release 40 mg PO QAM levothyroxine 88 mcg tablet (Synthroid) 88 mcg PO QAM bupropion HCl 200 mg tablet,12 hr sustained-release 300 mg PO QAM Take evening before surgery Probiotic And Digestive Enzyme 1 cap PO BID oxycodone 5 mg tablet 5 mg PO Q4H PRN pain (if needed) alprazolam 0.25 mg tablet (Xanax) 0.25 mg PO BID PRN Anxiety (if needed) rosuvastatin 40 mg tablet 40 mg PO QPM magnesium 1 tab PO HS cholecalciferol (vitamin D3) 125 mcg (5,000 unit) tablet (Vitamin D3) 125 mcg PO HS potassium chloride 99 mcg PO HS verapamil 100 mg capsule 24hr pellet CT,ext.release 100 mg PO HS sennosides 8.6 mg capsule (senna) 8.6 mg PO DAILY PRN Constipation (if needed) Other Notes If you have any questions please call us at [phone] or [phone] or [phone] or [phone]
--- NOTE | 2023-10-16 10:52 | Anesthesiology Consultation ---
Date of Service October 16, 2023 Assessment & Plan (1) Encounter for pre-operative examination: - awaiting PCP Mouna Thomas Sury pre-operative evaluation 10/13/23, upcoming cardiology pre-operative evaluation Dr. Esquivel [facility]. PAT testing to be faxed to both offices and most recent [facility] pulmonology office note, PFTs from [facility] and [place]. - right TSA 02/05/2323 Grade 2 view, MAC 3, ETT 7.5 + PNB. - Outpatient joint assessment: Patient is currently scheduled for inpatient pathway. If re-evaluated and patient/surgeon requests outpatient pathway, patient is acceptable candidate for outpatient joint program from anesthesia standpoint pending surgeon's office assessment of pt motivation/support/completion of same day joint program preop requirements. Chart Review Chart Review: Pending: Refer to Additional Notes / Consult section and Patient seen in Pre Admission Testing Teaching & Discussion Pre-Anesthesia Teaching/Discussion Notes: Instructed NPO after midnight before surgery, except medications with 15 cc of water. Medication instructions provided according to the PAT guidelines. History Surgery Operation Date: 11/04/23 07:15 Proposed Procedures p Left Total Shoulder Arthroplasty - Moisés Sanchez MD Height/Weight Height: 5 ft 6 in Weight: 74.4 kg Allergies Allergy/AdvReac Type Severity Reaction Status Date / Time No Known Allergies Allergy Verified 10/09/23 10:19 Medications Home Medications Medication Instructions Recorded Confirmed Last Taken Probiotic And Digestive Enzyme 1 cap PO BID 01/20/23 10/09/23 02/04/23 22:30 alprazolam 0.25 mg tablet (Xanax) 0.25 mg PO BID PRN Anxiety 01/20/23 10/09/23 02/04/23 16:00 bupropion HCl 200 mg tablet,12 hr 300 mg PO QAM 01/20/23 10/09/23 02/05/23 06:00 sustained-release cetirizine 10 mg tablet (Zyrtec) 10 mg PO DAILY PRN allergies 01/20/23 10/09/23 Unknown cholecalciferol (vitamin D3) 125 125 mcg PO HS 01/20/23 10/09/23 01/28/23 mcg (5,000 unit) tablet (Vitamin D3) indapamide 2.5 mg tablet 2.5 mg PO QAM 01/20/23 10/09/23 02/04/23 08:00 levothyroxine 88 mcg tablet 88 mcg PO QAM 01/20/23 10/09/23 02/05/23 06:00 (Synthroid) magnesium 1 tab PO HS 01/20/23 10/09/23 01/28/23 pantoprazole 40 mg tablet,delayed 40 mg PO QAM 01/20/23 10/09/23 02/05/23 06:00 release potassium chloride 99 mcg PO HS 01/20/23 10/09/23 02/04/23 22:30 spironolactone 25 mg tablet 25 mg PO QAM 01/20/23 10/09/23 02/04/23 09:00 verapamil 100 mg capsule 24hr 100 mg PO HS 01/20/23 10/09/23 02/04/23 22:[address],ext.release vit C 250 mg-vit E 90 mg-zinc 40 1 tab PO BID 01/20/23 10/09/23 01/28/23 mg-copper 1 [id number] capsule (PreserVision AREDS-2) rosuvastatin 40 mg tablet 40 mg PO QPM 01/23/23 10/09/23 02/04/23 22:30 sennosides 8.6 mg capsule (senna) 8.6 mg PO DAILY PRN Constipation 02/05/2309/3002/03/23 oxycodone 5 mg tablet 5 mg PO Q4H PRN pain #30 tabs 02/06/23 10/09/23 Unknown aspirin 81 mg tablet,delayed 81 mg PO HS 10/09/23 10/09/23 Unknown release ibuprofen 200 mg tablet (Advil) 200 mg PO Q6H PRN Pain 10/09/23 10/09/23 Unknown Past Medical History Medical History Hypothyroidism GERD (gastroesophageal reflux disease) controlled, stable per pt Family history of hemochromatosis Hx of cancer of lung 6 years ago, s/p lung resection "no other treatments necessary" Anxiety Hypertension controlled, stable per pt Patient denies h/o stroke, seizures, heart attack, heart failure, DM, blood clots/DVTs or blood transfusions. 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) Past Anesthesia History No Hx of Anesthesia Complications and No Family Hx of Anesthesia Complications History of PONV No Hx of PONV and No Hx of Motion Sickness Social History Smoking Status: Former smoker tobacco type: cigarettes Do You Dip or Chew Tobacco: No Smoking End Date: 20 yrs ago Hx Alcohol Use: Yes Alcohol type: beer, wine and hard liquor alcohol intake frequency: a few times a week Hx Substance Use: No substance use type: does not use Review of Systems Patient denies chest pain, shortness of breath, dyspnea on exertion, snoring, witnessed apneas, fever, chills, cough, wheezing, or palpitations. Physical Exam Vital Signs Vitals BP 120/84 P 75 TEMP 98.2 SP02 95% on RA RESP 18 Physical Patient resting comfortably in chair in no acute distress, alert and oriented, responding appropriately throughout visit Full cervical extension range of motion without pain TMD 3.5 finger breadths Mallampati Score 2 Dentition: several caps/crowns and one implant right upper side; denies chipped or loose teeth, or bridges Lungs: normal respiratory effort. Good air movement, clear throughout to auscultation, no adventitious breath sounds Cardiac: regular rate and rhythm, no murmurs noted Carotid arteries: negative bruit bilat Lab Results Anesthesia Preop Results Results Anesthesia Widget: WBC 4.64 K/ul (4.8-10.8) L 10/16/23 Hgb 14.6 g/dl (12.0-16.0) 10/16/23 Hct 42.6 % (37.0-47.0) 10/16/23 Plt 251 K/uL (130-400) 10/16/23 Na 137 mmol/L (136-145) 10/16/23 K 3.6 mmol/L (3.5-5.1) 10/16/23 Cl 101 mmol/L (98-107) 10/16/23 CO2 30 mmol/L (21-32) 10/16/23 BUN 22 mg/dl (6-23) 10/16/23 Creat 0.66 mg/dl (0.6-1.2) 10/16/23 Glucose Level 84 mg/dl (70-99(Fasting)) 10/16/23 PT 11.4 Seconds (9.0-12.0) 10/16/23 PTT 30.8 Seconds (21.0-31.0) 10/16/23 INR 1.0 (0.9-1.1) 10/16/23 TSH 0.924 uIu/ml (0.300-4.500) 10/16/23 Urine Color Yellow 10/16/23 Urine Appearance Clear (Clear) 10/16/23 Urine pH 7.0 (4.5-7.5) 10/16/23 Urine Specific [place] 1.010 (1.000-1.030) 10/16/23 Urine Protein Negative (Negative) 10/16/23 Urine Glucose (UA) Negative (Negative) 10/16/23 Urine Ketones Negative (Negative) 10/16/23 Urine Blood Negative (Negative) 10/16/23 Urine Nitrite Negative (Negative) 10/16/23 Urine Bilirubin Negative (Negative) 10/16/23 Urine Urobilinogen Negative (Negative) 10/16/23 Urine Leukocyte Esterase Trace (Negative) H 10/16/23 Urine WBC (Auto) 1-5 /hpf (0-5) 10/16/23 Urine RBC (Auto) 0-4 /hpf (0-4) 10/16/23 Urine Hyaline Casts (Auto) 0 /lpf (0-5) 10/16/23 Urine Epithelial Cells (Auto) >30 /lpf (0-5) H 10/16/23 Urine Bacteria (Auto) Negative (Negative) 10/16/23 Blood Type AB Positive 10/16/23 Antibody Screen NEGATIVE 10/16/23 Testing Electrocardiogram Date: 10/16/23 NSR, rate 71 bpm Low voltage QRS Left anterior fascicular block Poor R wave progression, consider anterior NV vs lead placement vs LVH No significant change vs 04/03/2017 EKG Chest X-Ray Date: 01/23/23 No acute chest disease. Stress Test Date: 09/10/21 MPHR 91% METS 5.5 No scintigraphic evidence for inducible ischemia EF 57%
--- NOTE | 2023-11-03 08:00 | History & Physical Report ---
Date of Service November 03, 2023 Assessment & Plan (1) Primary osteoarthritis, left shoulder: Plan: Treatment options discussed with the patient. She has failed conservative measures and would like to proceed with surgical intervention. Risks, benefits and alternatives to surgery including but not limited to infection, DVT, pain, stiffness, need for revision surgery, damage to blood vessels, damage to nerves, PE, , were discussed with the patient and they wish to proceed. Plan on left total shoulder arthroplasty scheduled for [facility] on 11/04/[address] Sanchez. All questions answered. Patient will f/u post op. History of Present Illness Chief Complaint: Left shoulder pain Primary Care Provider: Hamlet Paul 68-year-old female with past medical history significant for hypertension, hypothyroidism, history of lung CA who presents with longstanding left shoulder pain. Patient has failed conservative measures. Pain is interfering with her daily activities. She would like to proceed with surgical intervention. Patient denies headaches, sweats, fevers, chills, double vision, blurred vision, cough, sore throat, dysphagia, chest pain, sob, wheezing, n/v/d/c, numbness, tingling, fatigue, urinary symptoms, mood disorders. ROS positive for left shoulder pain and stiffness. Allergies Allergy/AdvReac Type Severity Reaction Status Date / Time No Known Allergies Allergy Verified 10/09/23 10:19 Home Medications Medication Instructions Recorded Confirmed Type Probiotic And Digestive Enzyme 1 cap PO BID 01/20/23 10/09/23 History alprazolam 0.25 mg tablet (Xanax) 0.25 mg PO BID PRN Anxiety 01/20/23 10/09/23 History bupropion HCl 200 mg tablet,12 hr 300 mg PO QAM 01/20/23 10/09/23 History sustained-release cetirizine 10 mg tablet (Zyrtec) 10 mg PO DAILY PRN allergies 01/20/23 10/09/23 History cholecalciferol (vitamin D3) 125 125 mcg PO HS 01/20/23 10/09/23 History mcg (5,000 unit) tablet (Vitamin D3) indapamide 2.5 mg tablet 2.5 mg PO QAM 01/20/23 10/09/23 History levothyroxine 88 mcg tablet 88 mcg PO QAM 01/20/23 10/09/23 History (Synthroid) magnesium 1 tab PO HS 01/20/23 10/09/23 History pantoprazole 40 mg tablet,delayed 40 mg PO QAM 01/20/23 10/09/23 History release potassium chloride 99 mcg PO HS 01/20/23 10/09/23 History spironolactone 25 mg tablet 25 mg PO QAM 01/20/23 10/09/23 History verapamil 100 mg capsule 24hr 100 mg PO HS 01/20/23 10/09/[address],ext.release vit C 250 mg-vit E 90 mg-zinc 40 1 tab PO BID 01/20/23 10/09/23 History mg-copper 1 [id number]-[id number]-[id number] capsule (PreserVision AREDS-2) rosuvastatin 40 mg tablet 40 mg PO QPM 01/23/23 10/09/23 History sennosides 8.6 mg capsule (senna) 8.6 mg PO DAILY PRN Constipation 02/05/23 10/09/23 History oxycodone 5 mg tablet 5 mg PO Q4H PRN pain #30 tabs 02/06/23 10/09/23 Rx aspirin 81 mg tablet,delayed 81 mg PO HS 10/09/23 10/09/23 History release ibuprofen 200 mg tablet (Advil) 200 mg PO Q6H PRN Pain 10/09/23 10/09/23 History Past Med/Surg History Medical History Hypothyroidism GERD (gastroesophageal reflux disease) controlled, stable per pt Family history of hemochromatosis Hx of cancer of lung 6 years ago, s/p lung resection "no other treatments necessary" Anxiety Hypertension controlled, stable per pt Surgical History History of total shoulder replacement right Hx of arthrodesis left, triple arthrodesis of foot Hx of spinal fusion lumbar x 2 Hx of section x2 History of open reduction and internal fixation (ORIF) procedure rt humerus Hx of total hysterectomy with removal of both tubes and ovaries Hx of colonoscopy Hx of tonsillectomy 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) Social History Smoking Status: Former smoker Second Hand Exposure: No; Do You Dip or Chew Tobacco: No; Hx Alcohol Use: Yes Alcohol type: beer, wine and hard liquor Hx Substance Use: No Preferred Language: Georgian Communication Ability: Effective Supervisor Trust Accounts Required: No Beliefs That Will Affect Care: None Current Living Situation: Spouse Feels Safe at Home: Yes Assistive Devices: Glasses Review of Systems All systems reviewed & are unremarkable except as noted in HPI & below Physical Exam Constitutional: well developed and well nourished; no acute distress Eyes: PERRL, conjunctivae normal, anicteric sclerae ENMT: external ear and nose normal, oropharynx normal Neck: trachea midline, no thyromegaly Respiratory: normal respiratory effort, lungs clear to auscultation Cardiovascular: RRR, no murmur, no edema Musculoskeletal: Left shoulder: Tenderness anterior glenoid. Positive impingement signs. Active painful ROM with bone on bone crepitation with strength testing. ER 4/5 with pain, IR 5/5, abduction 4-/5. FF to 180, abduction to 165, ER to 60 degrees. Skin: no rashes, warm and dry Neurologic: patellar DTR's 2+ bilat, sensation intact Psychiatric: A+Ox3, euthymic affect Results & Data Diagnostic Findings Left shoulder radiographs demonstrate advanced osteoarthritis left shoulder, [id number] posterior glenohumeral joint. There is flattening of the humeral head with periarticular osteophytes.
[~2023-11-04 08:00] MED LIST changes: +DEXAMETHASONE SOD INJ 4 MG/ML VIAL ONE; +GABAPENTIN 300 MG CAP PO SCH; -GABAPENTIN 600 MG DOSE PO SCH; +LR 60ML/HR IV SCH; +MIDAZOLAM HCL 1 MG/ML 2ML VIAL ONE; +ONDANSETRON INJ 2 MG/ML 2 ML VIAL ONE; +PROPOFOL IV EMULSION 10 MG/ML 20 ML VIAL IV ONE; +ROCURONIUM BROMIDE 10 MG/ML 5 ML VIAL IV ONE; +SUGAMMADEX SODIUM 200 MG/2 ML VIAL IV ONE; +fentaNYL citrate PF 100 MCG/2 ML VIAL ONE
[2023-11-04] MEDS ORDERED: ONDANSETRON INJ 2 MG/ML 2 ML VIAL IV PRN ×2 (09:16→15:29)
[2023-11-04] MEDS ORDERED: ATROPINE SULFATE 0.1 MG/ML 10ML SYR IV PRN (09:16)
[2023-11-04] MEDS ORDERED: ePHEDrine sulfate 50 MG/ML AMP IV PRN (09:16)
[2023-11-04] MEDS ORDERED: HYDROmorphone INJ 2 MG/ML SYR/VIAL IV PRN (09:16)
[2023-11-04] MEDS ORDERED: fentaNYL citrate PF 100 MCG/2 ML VIAL IV PRN (09:16)
--- NOTE | 2023-11-04 10:00 | History & Physical Bridge Note ---
Date of Service November 04, 2023 History & Physical Bridge Note I have examined the patient, reviewed the History & Physical and in the interval since the performance of the History & Physical I have noted the following changes of clinical significance: no changes noted
[2023-11-04] MEDS ORDERED: EpINEphrine HCL INJ 1 MG/ML 1ML SYRINGE IV ONE (10:23)
[2023-11-04] MEDS ORDERED: ePHEDrine sulfate 50 MG/ML AMP ONE (10:41)
[2023-11-04] MEDS ORDERED: ROCURONIUM BROMIDE 10 MG/ML 5 ML VIAL IV ONE (10:43)
[2023-11-04] MEDS ORDERED: GLYCOPYRROLATE 0.2 MG/ML VIAL ONE (12:14)
--- NOTE | 2023-11-04 13:05 | Operative Report ---
Post Operative Report Pre & Post Diagnosis Operation Date: 11/04/23 09:45 Pre-Op Diagnosis: Left Shoulder end-stage glenohumeral osteoarthritis Post-Op Diagnosis: Left Shoulder end-stage glenohumeral osteoarthritis, biceps tenosynovitis, proximal humerus degenerative cysts. I identified the patient and participated in the time-out.: Yes Procedure Operation Date: 11/04/23 09:45 Actual Procedures p Left Total Shoulder Arthroplasty, biceps tenodesis, bone grafting greater tuberosity cysts with humeral head autograft.- Moisés Sanchez MD Surgeon Moisés Sanchez MD Drapery And Upholstery Measurer Ash GREWAL Estimated Blood Loss 100 Findings Consistent with Post-Op Diagnosis Specimens Humeral head cut Drains 2 Hemovac Anesthesia Type General Regional Complications none Disposition Disposition: Recovery Room Indications 68-year-old female with end-stage glenohumeral osteoarthritis left shoulder radiographs demonstrate she has grade 4 osteoarthritis [id number] with typical inferior humeral osteophytes and bone loss humeral and glenoid sides. Description of Procedure The patient was taken to the operating room and anesthetized under a general and regional block anesthesia. A towel roll was placed under the medial border of the scapula of the [] shoulder. The patient's head was placed on a foam headrest and protective eyewear was placed and the extremities were well padded. TEDS and SCDs applied. The arm was draped free in order to manipulate the shoulder as necessary. The shoulder exam demonstrated[] . The shoulder was sterilely prepped and draped in the usual sterile fashion. An anterior deltopectoral approach was performed. A longitudinal incision was made in the interval. The skin was incised sharply and subcutaneous tissues dissected down to the fascia. The cephalic vein was identified and retracted laterally with the deltoid. There were 2 cephalic veins one smaller than the other and multiple crossing veins. Any crossing veins were tied off with silk ties and divided. The clavipectoral fascia was divided at the lateral margin of the conjoined tendon and divided up to the level of the coracoacromial ligament which was preserved. The upper 1 cm of the pectoralis was released for inferior exposure. The biceps tendon findings demonstrated marked biceps tenosynovitis extending into the bicipital groove where there were bicipital groove osteophytes. The osteophytes were resected and a tenosynovectomy was performed.. The rotator cuff tendon findings demonstrated some bursitis over the rotator cuff but intact rotator cuff.. The circumflex vessels were identified and tied off with silk ties and divided laterally. The fibers and subscapularis were split longitudinally at the level of the circumflex vessels down to the capsule and then reflected off the inferior capsule using a Kitner elevator. The axillary nerve was identified with a tug test and protected with a blunt Missy retractor. The rotator interval was opened up and extended down to the glenoid. the biceps tendon was tenodesed to the pectoralis tendon using a whipstitch and [id number] sutures using #2 FiberWire. Proximal biceps was resected. the subscapularis tendon was taken down with a trans-tendinous incision leaving a cuff of tissue for repair on the lesser tuberosity. The incision was carried down through the tendon and the capsule and a #1 Vicryl suture was placed into the free end of the subscapularis tendon. The capsule was subperiosteally dissected off the inferior neck of the humerus exposing the humeral osteophytes which demonstrated large irregular osteophytes standing down onto the neck. The osteophytes were excised with an artist chisel and a rongeur. The capsular release along the inferior neck of the humerus was completed. The humerus was then retracted posterior to the glenoid with a Fukuda retractor. The remainder of the biceps tendon and labrum were resected. The glenoid findings demonstrated type A wear pattern with bone loss which was concentric.. I did an anterior inferior and posterior inferior release with electrocautery on bone and a Quiroga elevator with the axillary nerve continuing to be protected with the blunt Hohmann retractor inferiorly. When the releases were completed and the humeral head was exposed with some extension and external rotation and in anatomic head cut was made using the oscillating saw. This revealed large metaphyseal cyst extending into the greater tuberosity area. Because of the cyst we cannot do a stemless replacement. The cyst were curetted out and they appeared to be benign in nature. The Tornier standard stem total shoulder arthroplasty was used including the pegged Cortiloc glenoid component. Attention was first taken to preparation of the humeral shaft. A centralizing awl was used followed by broaches up to the appropriate size. The trial broach was left in place and a cut protector was placed. The humerus was then retracted posterior to the glenoid using a Bankart retractor anteriorly and blunt Missy and posterior Tornier glenoid retractor. CT scan blueprint preoperative templating was utilized and a custom cutting guide was fabricated preop and this was placed over the glenoid in the appropriate position. A central guidewire was advanced through the guide into the glenoid. The glenoid was sized for a size large 40 diameter pegged glenoid component. The glenoid was reamed and the central drill widened for the central peg and the guide for the 3 peripheral peg holes was placed in the peg holes were drilled and a trial component was placed with a tight fit. The trial was removed and the glenoid was irrigated with pulsatile lavage antibiotic solution and the drill holes were dried and packed with epinephrine-soaked tampons for hemostasis. The Palacos G cement was vacuum mixed. The final component was cemented into position and held in position with pressure until the cement cured. A humeral head trial was placed. A trial reduction was performed and the shoulder was stable. The trial was removed and the humerus and canal were irrigated with antibiotic solution with bacitracin. 3 drill holes were made into the hard bone in the bicipital groove lateral to the lesser tuberosity and 3 #5 FiberWire transosseous sutures were placed for repair of the subscapularis with Espinoza - Nelson suture technique. After further irrigation of the canal and the final components were assembled. The final components were the ascend flex 5 A standard stem assembled to the 48 x 20 mm high offset humeral head. Humeral head autograft was harvested from the humeral head cut and the cancellous bone was packed into the cysts in the metaphyseal area and then the implant was then impacted into the humerus with a tight press-fit. The humerus was then irrigated with the xperience solution. The humerus was reduced to the glenoid and stability verified. The joint was then irrigated further with Xperience . The subscapularis was repaired with the #5 FiberWire sutures in a Espinoza-Nelson suture technique and lateral row fixation with vazcgl-[id number] #2 FiberWire in the soft tissue. The rotator interval was closed and maximal external rotation. The pectoralis was then closed with [id number] #2 FiberWire suture. The sutures were passed through the biceps tendon as well to reinforce the biceps tenodesis. Range of motion demonstrated repair was secure through 140 degrees forward flexion 90 degrees abduction and 50 degrees external rotation without any tension on repair. Futher irrigation with Xperience was performed and 2 Hemovac drains were placed. The deltopectoral interval was closed with [id number] #1 Vicryl sutures. The subcutaneous tissues were closed with interrupted 2-0 Vicryl and the skin was closed with marcelino and a sterile dressing was applied. The patient tolerated the procedure well. Ash GREWAL, my physician pest controller assistant, assisted in soft tissue retraction instrument management suture management and assisted in the subcutaneous and skin closure and will participate in the postoperative care the patient. I attest to the content of the Intraoperative Record and any orders documented therein. Any exceptions are noted below.
--- NOTE | 2023-11-04 14:06 | Anesthesiology Progress Note ---
Date of Service November 04, 2023 Anesthesia Post Procedure Vital Signs Vital Signs: Temp Pulse Pulse Resp BP Pulse Ox O2 Del Method 11/04/23 14:00 83 16 93/65 L 92 Oxymask 11/04/23 13:50 81 18 89/55 L 92 Oxymask 11/04/23 13:40 82 18 94/64 L 92 Oxymask 11/04/23 13:30 83 18 94/64 L 92 Oxymask 11/04/23 13:20 88 18 88/67 L 92 Oxymask 11/04/23 13:11 36.0 C L 97 H 14 92/65 L 89 L Oxymask 11/04/23 08:25 36.8 C 77 20 116/74 94 Room Air O2 Flow Rate 11/04/23 14:00 5 11/04/23 13:50 5 11/04/23 13:40 7 11/04/23 13:30 8 11/04/23 13:20 9 11/04/23 13:11 9 11/04/23 08:25 Pain Intensity Left Shoulder: Pain Intensity: 7 Transfer of Care Handoff Completed per policy Notes Mental Status: alert / awake / arousable and participated in evaluation Patient Amnestic to Procedure: Yes Nausea / Vomiting: adequately controlled Pain: adequately controlled Airway Patency, RR, SpO2: stable & adequate BP & HR: stable & adequate Hydration State: stable & adequate Anesthetic Complications: no major complications apparent and Pt Satisfied with anesthetic care
--- NOTE | 2023-11-04 14:41 | XRay Report ---
LEFT SHOULDER 2 VIEWS CLINICAL HISTORY: Postoperative examination. FINDINGS: 2 portable views of the left shoulder are obtained. The skeletal structures are osteopenic. A left shoulder arthroplasty is in near anatomic alignment. No acute fracture is seen. Skin clips, a surgical drain, subcutaneous gas, and soft tissue swelling overlying the left shoulder are expected postsurgical findings. Postsurgical change is noted in the left lung. IMPRESSION: Expected postsurgical findings status post left shoulder arthroplasty. No acute fracture is seen. Electronically signed by: Héctor Ramírez M.D. 11/04/2023 2:40 PM
[2023-11-04] MEDS ORDERED: HYDROmorphone INJ 0.5 MG/0.5 ML SYR IV PRN (15:29)
[2023-11-04] MEDS ORDERED: METOCLOPRAMIDE HCL INJ 5 MG/ML 2 ML VIAL IV PRN (15:29)
[2023-11-04] MEDS ORDERED: SENNOSIDES 8.6 MG PO PRN (15:29)
[2023-11-04] MEDS ORDERED: ALPRAZolam 0.25 MG TABLET PO PRN (15:29)
[2023-11-04] MEDS ORDERED: MAGNESIUM HYDROXIDE SUSP 30 ML UDC PO PRN (15:29)
[2023-11-04] MEDS ORDERED: NALOXONE HCL 0.4 MG/1 ML VIAL/CARP IV PRN (15:29)
[2023-11-04] MEDS ORDERED: bisacodyL 10 MG SUPP PR PRN (15:29)
[2023-11-04] MEDS ORDERED: CETIRIZINE HCL 10 MG TABLET PO PRN (15:29)
[2023-11-04] MEDS: SODIUM CHLORIDE 0.9% 1,000 ML IV SCH (16:16)
[2023-11-04] MEDS: ACETAMINOPHEN 500 MG TAB PO SCH ×2 (16:24→21:19)
[2023-11-04] MEDS: ceFAZolin 1000MG 1,000 MG/7.5 ML SYR IV SCH (17:38)
[2023-11-04] MEDS ORDERED: NON-FORMULARY MEDICATION (Magnesium Tablet) PO SCH (21:00)
[2023-11-04] MEDS ORDERED: POTASSIUM CHLORIDE PO SCH (21:00)
[2023-11-04] MEDS: SENNA 8.6 MG TAB PO SCH (21:18)
[2023-11-04] MEDS: ROSUVASTATIN CALCIUM 20 MG TAB PO SCH (21:19)
[2023-11-04] MEDS: DOCUSATE SODIUM 100 MG CAP PO SCH (21:19)
[2023-11-04] MEDS: CHOLECALCIFEROL 5,000 UNITS 125 MCG TAB PO SCH (21:19)
[2023-11-05] MEDS: ceFAZolin 1000MG 1,000 MG/7.5 ML SYR IV SCH (02:17)
[2023-11-05] MEDS: SODIUM CHLORIDE 0.9% 1,000 ML IV SCH (04:29)
[2023-11-05] MEDS: LEVOTHYROXINE SODIUM 88 MCG TABLET PO SCH (05:43)
[2023-11-05] MEDS: ACETAMINOPHEN 500 MG TAB PO SCH ×3 (05:43→20:39)
[2023-11-05 07:10] LABS: Basophils # (auto) 0.01 K/uL (0.00-0.20); Basophils % (auto) 0.1 %; Hematocrit (blood only) 34.6 % (37.0-47.0); Hemoglobin 12.1 g/dl (12.0-16.0); Immature Granulocytes # (auto) 0.08 K/uL (0.01-0.20); Immature Granulocytes % (auto) 0.8 %; Lymphocytes # (auto) 0.83 K/uL (1.20-3.40); Lymphocytes % (auto) 7.8 %; Mean Corpuscular Hemoglobin 30.7 pg (25.0-34.0); Mean Corpuscular Volume 87.8 fL (80.0-100.0); Mean Platelet Volume 9.6 fL (9.4-12.4); Monocytes # (auto) 1.04 K/uL (0.11-0.59); Monocytes % (auto) 9.8 %; Neutrophils # (auto) 8.68 K/uL (1.40-6.50); Neutrophils % (auto) 81.5 %; Platelet Count 186 K/uL (130-400); RDW Coefficient of Variation 13.6 % (11.5-14.5); RDW Standard Deviation 43.9 fL (36.4-46.3); Red Blood Count 3.94 M/uL (4.20-5.40); White Blood Count 10.64 K/ul (4.8-10.8)
[2023-11-05 07:20] LABS: BUN Creatinine Ratio 23.6 (10-20); Calcium 8.7 mg/dl (8.6-10.3); Creatinine Clr Calc Pharmacy 103.4 ml/min; Est GFR (African American) 113.3 ml/min; Est GFR (Non-African American) 97.7 ml/min; Potassium 3.3 mmol/L (3.5-5.1)
--- NOTE | 2023-11-05 07:56 | Orthopedic Progress Note ---
Date of Service November 05, 2023 Assessment & Plan (1) Primary osteoarthritis, left shoulder: Plan: Postop day 1 left total shoulder arthroplasty -PT/OT -Pain management is very -DVT prophylaxis: SCDs, aspirin 81 mg daily -AM labs: Mild hypokalemia. Patient does take potassium supplement and did not take yesterday at all. She will restart today. Mild drop in hemoglobin at 12.1 acute blood loss anemia due to surgical loss versus dilutional. Patient is as ymptomatic. -Discharge planning: Plan on discharge home when stable. Patient is on 2 via nasal cannula at this time. Possibly due to nerve block.. Plan on discharge home as long as able to wean off of O2 and progresses well through the morning. Admission and Anticipated Discharge Date Admission Date: November 04, 2023 Subjective Patient is postop day 1 left TSA. She is doing well this morning. No current complaints. Denies chest pain, shortness of breath, nausea/vomiting/diarrhea, eggs or dizziness. Review of Systems Review of Systems: All systems reviewed & are unremarkable except as noted in Subjective Physical Exam Physical Exam: Left shoulder: Dressings clean, dry, intact. Sling is in place. Fingers are mobile with wrist extension. Distal neurovascular status and sensation is grossly intact. Results & Data Vital Signs (Past 12 Hours) Vital Signs Temp Pulse Resp BP Pulse Ox O2 Del Method O2 Flow Rate 11/05/23 02:21 36.6 C 66 18 113/67 93 Nasal Cannula 4 11/04/23 23:00 36.8 C 84 18 106/72 93 Nasal Cannula 4 11/04/23 20:50 Nasal Cannula 4
[2023-11-05] MEDS: INDAPAMIDE 1.25 MG TAB PO SCH (08:28)
[2023-11-05] MEDS: buPROPion SR 150 MG TABCR PO SCH (08:28)
[2023-11-05] MEDS: CEROVITE ADV FORMULA TAB PO SCH (08:28)
[2023-11-05] MEDS: MULTIVITAMIN TAB PO SCH (08:28)
[2023-11-05] MEDS: PANTOprazole 40 MG TAB PO SCH (08:28)
[2023-11-05] MEDS: SPIRONOLACTONE 25 MG TAB PO SCH (08:28)
[2023-11-05] MEDS: DOCUSATE SODIUM 100 MG CAP PO SCH ×2 (08:28→20:37)
--- NOTE | 2023-11-05 11:43 | XRay Report ---
SINGLE VIEW CHEST CLINICAL HISTORY: Hypoxia FINDINGS: An AP, portable, upright chest radiograph is compared to study dated 01/23/2023. The heart i s top normal for projection. The pulmonary vasculature is noncongested. There are right larger than l eft pleural effusions with dependent atelectasis. No pneumothorax is seen. The skeletal structures ar e osteopenic. The bony thorax is grossly intact. Bilateral shoulder arthroplasties are in place. Skin clips and a surgical drain project over the left shoulder. Fusion hardware is seen in the lumbar spi ne. IMPRESSION: Right large left pleural effusions with dependent atelectasis. ACT 112: Negative or not required by law. Electronically signed by: Héctor Ramírez M.D. 11/05/2023 11:42 AM
--- NOTE | 2023-11-05 12:23 | Hospitalist Consultation ---
Date of Consultation November 05, 2023 Assessment & Plan (1) Hypoxia: -Requiring oxygen after surgery -hx of L lung cancer, s/p lobectomy - patient reports had PFTs done in March that were normal. Does report cough and congestion over the last month -CXR with bilateral pleural effusions, right greater than left -2Step with respiratory - no home oxygen needs -Pulmonary consulted --> Dr. Loya - Plan for thoracentesis today (2) Hx of cancer of lung: see hypoxia above (3) Primary osteoarthritis, left shoulder: left total shoulder arthroplasty with , 11/04/2023 - Pain control, DVT per primary team (4) Hypokalemia: 11/05: 3.3 Advised by surgery to restart PO potassium, which I agree with -continue spironolactone Plan Dispo: may still be able to discharge today, pending pulm consult Supervising Physician Co-Signing Physician Notes Attending Attestation - Chart reviewed in detail, consultation care plan d/w PA Melissa Acosta. I agree with the walsh components of her documentation. 68yo female with prior h/o lung cancer who is now s/p left total shoulder replacement. Had transient hypoxia post-op. CXR with R>L pleural effusions. Etiology of the effusions uncertain. Given the size of the right-sided effusion will [place] [facility] [place] additional w/u & Rx. Juan Francisco Hope MD History of Present Illness Reason for Consultation: Hypoxia. Attending Physician: Moisés Sanchez MD History of Present Illness Meenakshi is a 68F with hx of hypothyroid HTN, GERD and Left Lung cancer, who was gonzales ving hypoxia and increasing oxygen needs s/p Left Total Shoulder Arthroplasty with Dr. Sanchez. During my exam, patient is walking around in the room, on RA stating 93%. States that she does not feel short of breath. Reports having PFTs done at [facility] this summer and there was no issues. Did not have a CXR during her preop testing. Did have a prolonged cough last month, but that has resolved. Allergies Allergy/AdvReac Type Severity Reaction Status Date / Time No Known Allergies Allergy Verified 11/04/23 08:20 Home Medications Medication Instructions Recorded Confirmed Type Probiotic And Digestive Enzyme 1 cap PO BID 01/20/23 11/04/23 History alprazolam 0.25 mg tablet (Xanax) 0.25 mg PO BID PRN Anxiety 01/20/23 11/04/23 History bupropion HCl 200 mg tablet,12 hr 300 mg PO QAM 01/20/23 11/04/23 History sustained-release cetirizine 10 mg tablet (Zyrtec) 10 mg PO DAILY PRN allergies 01/20/23 11/04/23 History cholecalciferol (vitamin D3) 125 125 mcg PO HS 01/20/23 11/04/23 History mcg (5,000 unit) tablet (Vitamin D3) indapamide 2.5 mg tablet 2.5 mg PO QAM 01/20/23 11/04/23 History levothyroxine 88 mcg tablet 88 mcg PO QAM 01/20/23 11/04/23 History (Synthroid) magnesium 1 tab PO HS 01/20/23 11/04/23 History pantoprazole 40 mg tablet,delayed 40 mg PO QAM 01/20/23 11/04/23 History release potassium chloride 99 mcg PO HS 01/20/23 11/04/23 History spironolactone 25 mg tablet 25 mg PO QAM 01/20/23 11/04/23 History verapamil 100 mg capsule 24hr 100 mg PO HS 01/20/23 11/04/[address],ext.release vit C 250 mg-vit E 90 mg-zinc 40 1 tab PO BID 01/20/23 11/04/23 History mg-copper 1 [id number] capsule (PreserVision AREDS-2) rosuvastatin 40 mg tablet 40 mg PO QPM 01/23/23 11/04/23 History sennosides 8.6 mg capsule (senna) 8.6 mg PO DAILY PRN Constipation 02/05/23 11/04/23 History aspirin 81 mg tablet,delayed 81 mg PO HS 10/09/23 11/04/23 History release acetaminophen 500 mg tablet 1,000 mg (2 x 500 mg) PO Q8 #60 11/05/23 Rx (Tylenol Extra Strength) tabs tramadol 50 mg tablet 50 - 100 mg (1 - 2 x 50 mg) PO 11/06/23 Rx .Q4h-6h PRN pain #30 tabs Patient History Medical History (Updated 11/05/23 @ 16:59 by Pardeep Loya MD) Elevated diaphragm Atelectasis, right Hypothyroidism GERD (gastroesophageal reflux disease) controlled, stable per pt Family history of hemochromatosis Hx of cancer of lung 6 years ago, s/p lung resection "no other treatments necessary" Anxiety Hypertension controlled, stable per pt Surgical History History of total shoulder replacement right Hx of arthrodesis left, triple arthrodesis of foot Hx of spinal fusion lumbar x 2 Hx of section x2 History of open reduction and internal fixation (ORIF) procedure rt humerus Hx of total hysterectomy with removal of both tubes and ovaries Hx of colonoscopy Hx of tonsillectomy 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) Social History Smoking Status: Former smoker Second Hand Exposure: No; Do You Dip or Chew Tobacco: No; Hx Alcohol Use: Yes Alcohol type: beer, wine and hard liquor Hx Substance Use: No Preferred Language: Maldivian Communication Ability: Effective 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 Beliefs That Will Affect Care: None Current Living Situation: Spouse Feels Safe at Home: Yes Assistive Devices: Walker Review of Systems Review of Systems: All systems reviewed & are unremarkable except as noted in Subjective Physical Exam Physical Exam: General: WN/WD, NAD, VS as above Resp: normal respiratory effort, decrease lung sounds bilateral bases CV: RRR, no murmur, Extremities: Moves all extremities, no edema Neuro: A&O x3, Results & Data Results & Data Vital Signs (Past 12 Hours) Vital Signs Temp Pulse Pulse Pulse Resp Resp Resp 11/05/23 12:09 88 80 20 16 11/05/23 11:22 36.4 C L 60 16 11/05/23 09:24 11/05/23 08:27 11/05/23 08:00 11/05/23 07:57 36.5 C 65 16 11/05/23 02:21 36.6 C 66 18 BP Pulse Ox Pulse Ox Pulse Ox O2 Del Method O2 Flow Rate 11/05/23 12:09 90 94 11/05/23 11:22 130/81 94 Room Air 11/05/23 09:24 93 Room Air 11/05/23 08:27 94 Nasal Cannula 2 11/05/23 08:00 Nasal Cannula 3 11/05/23 07:57 135/68 92 Nasal Cannula 3 11/05/23 02:21 113/67 93 Nasal Cannula 4 Laboratory Results CBC and chemsity reviewed Diagnostic Findings Chest X-Ray 11/05/23 10:24 SINGLE VIEW CHEST CLINICAL HISTORY: Hypoxia FINDINGS: An AP, portable, upright chest radiograph is compared to study dated 01/23/2023. The heart is top normal for projection. The pulmonary vasculature is noncongested. There are right larger than left pleural effusions with dependent atelectasis. No pneumothorax is seen. The skeletal structures are osteopenic. The bony thorax is grossly intact. Bilateral shoulder arthroplasties are in place. Skin clips and a surgical drain project over the left shoulder. Fusion hardware is seen in the lumbar spine. IMPRESSION: Right large left pleural effusions with dependent atelectasis. ACT 112: Negative or not required by law. Electronically signed by: Héctor Ramírez M.D. 11/05/2023 11:42 AM PG Care Time/CCT Total # of Minutes Spent Total Time Spent with Patient: Total time spent is greater than 50% in coordination of care (as documented) at patient's floor/unit and/or counseling patient: Coding Level of Care Code 47425 IN/OBS CONSULT LVL 3,45M Diagnoses Hypoxia R09.02 Hx of cancer of lung Z85.118 Primary osteoarthritis, left shoulder M19.012 Hypokalemia E87.6
--- NOTE | 2023-11-05 16:11 | Pulmonary Consultation ---
Date of Consultation November 05, 2023 Assessment & Plan (1) Atelectasis, right: (2) Elevated diaphragm: (3) Hx of cancer of lung: Plan 68-year-old female with a past medical history of left upper lobectomy due to carcinoid tumor who presented for an elective left total shoulder arthroplasty. Postoperatively she developed hypoxia and a chest x-ray which revealed right hemidiaphragmatic elevation and bilateral lower lobe atelectasis. I performed a pleural ultrasound of the bilateral hemithoraces and was not able to see any pleural effusion. There does appear to be elevation of the right hemidiaphragm. Will proceed with a CT of her chest without contrast to further evaluate these abnormalities and check for pleural effusions. She may have diaphragmatic elevation related to recovery from general anesthesia and local anesthetics that may have been used. It is somewhat unusual that her diaphragm elevation is noted on the contralateral side from her shoulder surgery. Phrenic nerve injury from her surgery and the use of regional block anesthesia can potentially lead to diaphragmatic elevation/phrenic nerve palsy. I encouraged continued use of her incentive spirometer and getting out of the bed to walk around frequently to improve her inspiratory capacity. Further recommendations will depend on the results of the CT chest without contrast. Thank you. Will follow along with you. History of Present Illness Reason for Consultation: Right pleural effusion Attending Physician: Moisés Sanchez MD History of Present Illness 68-year-old female with a past medical history of hypothyroidism, GERD, lung cancer and hypertension who presented for an elective left total arthroplasty 11/04/2023. Postoperatively, she developed shortness of breath and hypoxia. Chest x-ray was ordered and completed today which revealed an elevated right hemidiaphragm and low lung volumes. There is also evidence of dependent atelectasis. Radiology noted a "large right pleural effusion with dependent atelectasis". I performed an ultrasound of the bilateral hemithorax and did not see any evidence of pleural effusion. She does seem to have an elevated hemidiaphragm in the right. Patient notes that she had a resection of the left upper lobe approximately 7 years ago at [facility] due to carcinoid tumor. She followed with a big data analytics lead briefly. She notes that she had PFTs completed several years ago due to shortness of breath when going upstairs and she was told that her PFTs are "normal". She does have a smoking history from age [age]. She was a social smoker. 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 She denies any significant cough or shortness of breath at present. She does note occasional allergies and postnasal drip symptoms. Labs are generally unremarkable. No significant leukocytosis is noted. She is currently saturating in the mid 90s on room air. Allergies Allergy/AdvReac Type Severity Reaction Status Date / Time No Known Allergies Allergy Verified 11/04/23 08:20 Home Medications Medication Instructions Recorded Confirmed Type Probiotic And Digestive Enzyme 1 cap PO BID 01/20/23 11/04/23 History alprazolam 0.25 mg tablet (Xanax) 0.25 mg PO BID PRN Anxiety 01/20/23 11/04/23 History bupropion HCl 200 mg tablet,12 hr 300 mg PO QAM 01/20/23 11/04/23 History sustained-release cetirizine 10 mg tablet (Zyrtec) 10 mg PO DAILY PRN allergies 01/20/23 11/04/23 History cholecalciferol (vitamin D3) 125 125 mcg PO HS 01/20/23 11/04/23 History mcg (5,000 unit) tablet (Vitamin D3) indapamide 2.5 mg tablet 2.5 mg PO QAM 01/20/23 11/04/23 History levothyroxine 88 mcg tablet 88 mcg PO QAM 01/20/23 11/04/23 History (Synthroid) magnesium 1 tab PO HS 01/20/23 11/04/23 History pantoprazole 40 mg tablet,delayed 40 mg PO QAM 01/20/23 11/04/23 History release potassium chloride 99 mcg PO HS 01/20/23 11/04/23 History spironolactone 25 mg tablet 25 mg PO QAM 01/20/23 11/04/23 History verapamil 100 mg capsule 24hr 100 mg PO HS 01/20/23 11/04/[address],ext.release vit C 250 mg-vit E 90 mg-zinc 40 1 tab PO BID 01/20/23 11/04/23 History mg-copper 1 [id number] capsule (PreserVision AREDS-2) rosuvastatin 40 mg tablet 40 mg PO QPM 01/23/23 11/04/23 History sennosides 8.6 mg capsule (senna) 8.6 mg PO DAILY PRN Constipation 02/05/23 11/04/23 History oxycodone 5 mg tablet 5 mg PO Q4H PRN pain #30 tabs 02/06/23 11/04/23 Rx aspirin 81 mg tablet,delayed 81 mg PO HS 10/09/23 11/04/23 History release ibuprofen 200 mg tablet (Advil) 200 mg PO Q6H PRN Pain 10/09/23 11/04/23 History acetaminophen 500 mg tablet 1,000 mg (2 x 500 mg) PO Q8 #60 11/05/23 Rx (Tylenol Extra Strength) tabs oxycodone 5 mg tablet 5 - 10 mg (1 - 2 x 5 mg) PO 11/05/23 Rx .Q4h-6h PRN pain #30 tabs Patient History Medical History (Updated 11/05/23 @ 16:59 by Pardeep Loya MD) Elevated diaphragm Atelectasis, right Hypothyroidism GERD (gastroesophageal reflux disease) controlled, stable per pt Family history of hemochromatosis Hx of cancer of lung 6 years ago, s/p lung resection "no other treatments necessary" Anxiety Hypertension controlled, stable per pt Surgical History History of total shoulder replacement right Hx of arthrodesis left, triple arthrodesis of foot Hx of spinal fusion lumbar x 2 Hx of section x2 History of open reduction and internal fixation (ORIF) procedure rt humerus Hx of total hysterectomy with removal of both tubes and ovaries Hx of colonoscopy Hx of tonsillectomy 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) Social History Smoking Status: Former smoker Smoking End Date: 20 yrs ago; Second Hand Exposure: No; Do You Dip or Chew Tobacco: No; Tobacco Cessation Education Requested by Patient: No Hx Alcohol Use: Yes Alcohol type: beer, wine and hard liquor Hx Substance Use: No Preferred Language: Macanese Communication Ability: Effective Homeopathic Doctor Required: No Beliefs That Will Affect Care: None Current Living Situation: Spouse Other Information That Helps Us Care for You: No Feels Safe at Home: Yes Safety Concerns: Feels Safe At This Time Assistive Devices: Walker Review of Systems Review of Systems: All systems reviewed & are unremarkable except as noted in HPI & below Physical Exam Physical Exam: Constitutional: Patient appears to be of their stated age. Patient is in no apparent distress. Patient is well-developed. Eyes: Pupils are equal round and reactive to light. Conjunctivae are normal. Anicteric sclera. Ears nose, mouth and throat: Mallampati class 1. Normal posterior oropharynx. Uvula is midline. Neck: Trachea is midline. Visual inspection is normal. Respiratory: Mild crackles in the right lower lobe. Clear to auscultation elsewhere. Cardiovascular: Regular rate and rhythm. No murmurs. No edema. Gastrointestinal: Normal bowel sounds, soft, nontender and nondistended. No hepatosplenomegaly noted. Musculoskeletal: Left shoulder was noted to be in a sling. Skin: No rashes, warm dry and intact. Neurologic: No obvious focal neurological deficits seen. Psychiatric: Alert and oriented x3 with a euthymic affect. Results & Data Results & Data Vital Signs (Past 12 Hours) Vital Signs Temp Pulse Pulse Pulse Resp Resp Resp 11/05/23 13:18 11/05/23 12:09 88 80 20 16 11/05/23 11:22 36.4 C L 60 16 11/05/23 09:24 11/05/23 08:27 11/05/23 08:00 11/05/23 07:57 36.5 C 65 16 BP Pulse Ox Pulse Ox Pulse Ox Pulse Ox O2 Del Method O2 Flow Rate 11/05/23 13:18 96 11/05/23 12:09 90 94 11/05/23 11:22 130/81 94 Room Air 11/05/23 09:24 93 Room Air 11/05/23 08:27 94 Nasal Cannula 2 11/05/23 08:00 Nasal Cannula 3 11/05/23 07:57 135/68 92 Nasal Cannula 3 PG Care Time/CCT Total # of Minutes Spent Total Time Spent with Patient: Total time spent is greater than 50% in coordination of care (as documented) at patient's floor/unit and/or counseling patient: Coding Level of Care Code 43597 INT INP/OBS CARE 3/75MIN Diagnoses Atelectasis, right J98.11 Elevated diaphragm J98.6 Hx of cancer of lung Z85.118
[2023-11-05] MEDS: oxyCODONE HCL IR 5 MG TAB (IMMEDIATE RELEASE) PO PRN (16:40)
[2023-11-05] MEDS: SENNA 8.6 MG TAB PO SCH (20:37)
[2023-11-05] MEDS: CHOLECALCIFEROL 5,000 UNITS 125 MCG TAB PO SCH (20:39)
[2023-11-05] MEDS: ROSUVASTATIN CALCIUM 20 MG TAB PO SCH (20:40)
[2023-11-05] MEDS ORDERED: ASPIRIN 81 MG ECTAB PO SCH (21:00)
--- NOTE | 2023-11-05 22:26 | CT Scan Report ---
Exam(s): CT CHEST Without Contrast EXAM: CT Chest Without Intravenous Contrast CLINICAL HISTORY: Reason for exam: Postop surgical arthroplasty diaphragmatic elevati. TECHNIQUE: Axial computed tomography images of the chest without intravenous contrast. CTDI is 28.05 mGy and DLP is 779.56 mGy-cm. Automated exposure control was utilized for the study. A dose lowering technique was utilized adhering to the principles of ALARA. COMPARISON: No relevant prior studies available. FINDINGS: Lungs: Elevated RIGHT hemidiaphragm. Atelectasis at the lung bases. No mass. Pleural space: Unremarkable. No lobar consolidation, pleural effusion, or pneumothorax. Heart: Unremarkable. No cardiomegaly. No significant pericardial effusion. No significant coronary artery calcifications. Bones/joints: Bilateral shoulder arthroplasties. Degenerative changes of the spine. No acute fracture. No dislocation. Soft tissues: Unremarkable. Vasculature: Atherosclerotic changes of the aorta. No thoracic aortic aneurysm. Lymph nodes: Unremarkable. No enlarged lymph nodes. IMPRESSION: No lobar consolidation, pleural effusion, or pneumothorax. Electronically signed by: Cj Allen MD 11/05/23 22:25 PM
[2023-11-06] MEDS: oxyCODONE HCL IR 5 MG TAB (IMMEDIATE RELEASE) PO PRN (04:59)
[2023-11-06] MEDS: LEVOTHYROXINE SODIUM 88 MCG TABLET PO SCH (04:59)
[2023-11-06] MEDS: ACETAMINOPHEN 500 MG TAB PO SCH (05:01)
[2023-11-06 06:28] LABS: Hematocrit (blood only) 33.8 % (37.0-47.0); Hemoglobin 11.6 g/dl (12.0-16.0); Mean Corpuscular Hemoglobin 31.4 pg (25.0-34.0); Mean Corpuscular Hgb Conc 34.3 g/dL (32.0-36.0); Mean Corpuscular Volume 91.4 fL (80.0-100.0); Mean Platelet Volume 9.7 fL (9.4-12.4); Platelet Count 173 K/uL (130-400)
[2023-11-06 06:47] LABS: Calcium 8.6 mg/dl (8.6-10.3); Creatinine Clr Calc Pharmacy 113.7 ml/min; Est GFR (African American) 116.9 ml/min; Est GFR (Non-African American) 100.9 ml/min; Potassium 3.3 mmol/L (3.5-5.1)
--- NOTE | 2023-11-06 07:39 | Orthopedic Progress Note ---
Date of Service November 06, 2023 Assessment & Plan (1) Primary osteoarthritis, left shoulder: Plan: Postop day 2 left total shoulder arthroplasty -PT/OT -Pain management is very -DVT prophylaxis: SCDs, aspirin 81 mg daily -AM labs: Mild hypokalemia stable at 3.3. She is on home potassium supplement. Mild drop in hemoglobin at 11.6 acute blood loss anemia due to surgical loss versus dilutional. Patient is asymptomatic. -Discharge planning: Plan on discharge home when stable. Patient has been on room air and O2 saturations have remained within normal range. She did have a chest x-ray yesterday which demonstrated elevated right hemidiaphragm as well as large pleural effusion. Pulmonology consult was placed and she underwent bedside ultrasound which showed no evidence of pleural effusion. Chest CT was obtained which also demonstrated no pleural effusion however does have right hemidiaphragm elevation. Likely plan on discharge home today pending hospitalist and pulmonology evals. Admission and Anticipated Discharge Date Admission Date: November 04, 2023 Subjective Patient is postop day 2 left TSA. She is doing well this morning. No current complaints. Denies chest pain, shortness of breath, nausea/vomiting/diarrhea, Headaches or dizziness. Does feel foggy from the oxycodone we will discharge something different. Will switch to tramadol. Review of Systems Review of Systems: All systems reviewed & are unremarkable except as noted in Subjective Physical Exam Physical Exam: Left shoulder: Dressings clean, dry, intact. Sling is in place. Fingers are mobile with wrist extension. Distal neurovascular status and sensation is grossly intact. Results & Data Vital Signs (Past 12 Hours) Vital Signs Temp Pulse Resp BP Pulse Ox O2 Del Method 11/05/23 19:57 36.4 C L 64 16 128/62 91 Room Air
[2023-11-06] MEDS ORDERED: traMADol HCL 50 MG TABLET PO PRN (07:43)
[2023-11-06] MEDS: INDAPAMIDE 1.25 MG TAB PO SCH (08:15)
[2023-11-06] MEDS: DOCUSATE SODIUM 100 MG CAP PO SCH (08:15)
[2023-11-06] MEDS: SPIRONOLACTONE 25 MG TAB PO SCH (08:16)
[2023-11-06] MEDS: PANTOprazole 40 MG TAB PO SCH (08:16)
[2023-11-06] MEDS: CEROVITE ADV FORMULA TAB PO SCH (08:16)
[2023-11-06] MEDS: buPROPion SR 150 MG TABCR PO SCH (08:16)
[2023-11-06] MEDS: MULTIVITAMIN TAB PO SCH (08:17)
[2023-11-06] MEDS ORDERED: POTASSIUM CHLORIDE CRTAB 20 MEQ TABCR PO STA (08:25)
--- NOTE | 2023-11-06 11:40 | Pulmonology Progress Note ---
Date of Service November 06, 2023 Assessment & Plan (1) Atelectasis, right: (2) Elevated diaphragm: (3) Hx of cancer of lung: Plan 68-year-old female with a past medical history of left upper lobectomy due to carcinoid tumor who presented for an elective left total shoulder arthroplasty. Postoperatively she developed hypoxia and a chest x-ray which revealed right hemidiaphragmatic elevation and bilateral lower lobe atelectasis. CT chest reviewed with. No evidence of pleural effusion seen. No evidence of recurrence of malignancy seen. She does have an elevated right hemidiaphragm with some associated atelectasis. Chest fluoroscopy ordered to evaluate for paralyzed diaphragm. I suspect that the diaphragmatic elevation was likely related to her surgery and should hopefully recover over time. She would benefit from a repeat chest x-ray in 2 weeks. I encouraged her to use her incentive spirometer even when at home and perform deep breathing exercises to help improve her inspiratory capacity. I think she is safe for discharge home at this time from pulmonary perspective. Admission and Anticipated Discharge Date Admission Date: November 04, 2023 Subjective Patient seen and examined this morning. She is doing quite well and her shortness of breath is essentially nonexistent. She is eager to go home. She had a CT of her chest yesterday which we reviewed. She denies any cough, fevers, chills or night sweats. Review of Systems Review of Systems: All systems reviewed & are unremarkable except as noted in HPI & below Physical Exam Physical Exam: Constitutional: Patient appears to be of their stated age. Patient is in no apparent distress. Patient is well-developed. Eyes: Pupils are equal round and reactive to light. Conjunctivae are normal. Anicteric sclera. Ears nose, mouth and throat: Mallampati class 1. Normal posterior oropharynx. Uvula is midline. Neck: Trachea is midline. Visual inspection is normal. Respiratory: Mild crackles in the right lower lobe. Clear to auscultation elsewhere. Cardiovascular: Regular rate and rhythm. No murmurs. No edema. Gastrointestinal: Normal bowel sounds, soft, nontender and nondistended. No hepatosplenomegaly noted. Musculoskeletal: Left shoulder was noted to be in a sling. Skin: No rashes, warm dry and intact. Neurologic: No obvious focal neurological deficits seen. Psychiatric: Alert and oriented x3 with a euthymic affect. Results & Data Results & Data Vital Signs (Past 12 Hours) Vital Signs Temp Pulse Resp BP Pulse Ox O2 Del Method 11/06/23 08:01 36.5 C 77 16 126/77 98 Room Air PG Care Time/CCT Total # of Minutes Spent Total Time Spent with Patient: Total time spent is greater than 50% in coordination of care (as documented) at patient's floor/unit and/or counseling patient: Coding Level of Care Code 10995 SUB INP/OBS CARE 2/35MIN Diagnoses Atelectasis, right J98.11 Elevated diaphragm J98.6 Hx of cancer of lung Z85.118
--- NOTE | 2023-11-06 11:47 | Fluoroscopy Report ---
FL sniff test CLINICAL HISTORY: Elevated right hemidiaphragm status post surgeryright hemidiaphragmatic elevation COMPARISON STUDY: Chest CT 11/05/2023 FLUOROSCOPY TIME: 22 seconds FLUOROSCOPY IMAGES: 81 Ka,r: 6.51 mGy FINDINGS: Cardiomegaly. Persistent right hemidiaphragmatic elevation. Postoperative changes of left l ousmane with mild bibasilar densities. No paradoxical diaphragmatic motion. There is motion within the right hemidiaphragm however there is decreased motion compared to the left. IMPRESSION: Persistent right hemidiaphragm elevation. No paradoxical diaphragmatic motion identified to suggest paralysis. ACT 112: Negative or not required by law. Electronically signed by: Roberto Flores M.D. 11/06/2023 11:44 AM
--- NOTE | 2023-11-06 12:16 | Hospitalist Consultation ---
Date of Consultation November 06, 2023 Assessment & Plan (1) Hypoxia: -Requiring oxygen after surgery --> now on room air -hx of L lung cancer, s/p lobectomy - patient reports had PFTs done in March that were normal. Does report cough and congestion over the last month -CXR with bilateral pleural effusions, right greater than left -2Step with respiratory - no home oxygen needs -Pulmonary consulted --> Dr. Loya - (2) Hx of cancer of lung: see hypoxia above (3) Primary osteoarthritis, left shoulder: left total shoulder arthroplasty with , 11/04/2023 - Pain control, DVT per primary team (4) Hypokalemia: Replaced orally today -continue spironolactone Plan Dispo:stable for discharge Thank you for allowing us to participate in the care of this patient, please reach out with any questions or concerns Supervising Physician Co-Signing Physician Notes Attending Attestation - Chart reviewed, care plan d/w CARMINA Acosta. I agree with the walsh components of her documentation except - PATIENT DOES NOT HAVE EFFUSIONS - CT CHEST SHOWS RIGHT-SIDED HEMIDIAPHRAGM ELEVATION. No masses to suggest lung cancer recurrence. Appreciate [facility] Pulmonary consult & recs. Pulmonary believes the right-sided hemidiaphragm elevation is due to recent L total shoulder replacement and hopefully this issue resolves. Will need f/u cxr in 2 weeks post-discharge. O2 sats remain stable in room air. Juan Francisco Hope MD History of Present Illness Attending Physician: Moisés Sanchez MD History of Present Illness Patient sitting in bed. Patient spoke with pulmonology and has plans for outpatient follow up. Shoulder pain 06/08. Denies SOB. Allergies Allergy/AdvReac Type Severity Reaction Status Date / Time No Known Allergies Allergy Verified 11/04/23 08:20 Home Medications Medication Instructions Recorded Confirmed Type Probiotic And Digestive Enzyme 1 cap PO BID 01/20/23 11/04/23 History alprazolam 0.25 mg tablet (Xanax) 0.25 mg PO BID PRN Anxiety 01/20/23 11/04/23 History bupropion HCl 200 mg tablet,12 hr 300 mg PO QAM 01/20/23 11/04/23 History sustained-release cetirizine 10 mg tablet (Zyrtec) 10 mg PO DAILY PRN allergies 01/20/23 11/04/23 History cholecalciferol (vitamin D3) 125 125 mcg PO HS 01/20/23 11/04/23 History mcg (5,000 unit) tablet (Vitamin D3) indapamide 2.5 mg tablet 2.5 mg PO QAM 01/20/23 11/04/23 History levothyroxine 88 mcg tablet 88 mcg PO QAM 01/20/23 11/04/23 History (Synthroid) magnesium 1 tab PO HS 01/20/23 11/04/23 History pantoprazole 40 mg tablet,delayed 40 mg PO QAM 01/20/23 11/04/23 History release potassium chloride 99 mcg PO HS 01/20/23 11/04/23 History spironolactone 25 mg tablet 25 mg PO QAM 01/20/23 11/04/23 History verapamil 100 mg capsule 24hr 100 mg PO HS 01/20/23 11/04/[address],ext.release vit C 250 mg-vit E 90 mg-zinc 40 1 tab PO BID 01/20/23 11/04/23 History mg-copper 1 [id number]-[id number] capsule (PreserVision AREDS-2) rosuvastatin 40 mg tablet 40 mg PO QPM 01/23/23 11/04/23 History sennosides 8.6 mg capsule (senna) 8.6 mg PO DAILY PRN Constipation 02/05/23 11/04/23 History aspirin 81 mg tablet,delayed 81 mg PO HS 10/09/23 11/04/23 History release acetaminophen 500 mg tablet 1,000 mg (2 x 500 mg) PO Q8 #60 11/05/23 Rx (Tylenol Extra Strength) tabs tramadol 50 mg tablet 50 - 100 mg (1 - 2 x 50 mg) PO 11/06/23 Rx .Q4h-6h PRN pain #30 tabs Patient History Medical History (Updated 11/05/23 @ 16:59 by Pardeep Loya MD) Elevated diaphragm Atelectasis, right Hypothyroidism GERD (gastroesophageal reflux disease) controlled, stable per pt Family history of hemochromatosis Hx of cancer of lung 6 years ago, s/p lung resection "no other treatments necessary" Anxiety Hypertension controlled, stable per pt Surgical History History of total shoulder replacement right Hx of arthrodesis left, triple arthrodesis of foot Hx of spinal fusion lumbar x 2 Hx of section x2 History of open reduction and internal fixation (ORIF) procedure rt humerus Hx of total hysterectomy with removal of both tubes and ovaries Hx of colonoscopy Hx of tonsillectomy 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) Social History Smoking Status: Former smoker Second Hand Exposure: No; Do You Dip or Chew Tobacco: No; Hx Alcohol Use: Yes Alcohol type: beer, wine and hard liquor Hx Substance Use: No Preferred Language: Grenadian Communication Ability: Effective 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 Beliefs That Will Affect Care: None Current Living Situation: Spouse Feels Safe at Home: Yes Assistive Devices: Walker Review of Systems Review of Systems: All systems reviewed & are unremarkable except as noted in Subjective Physical Exam Physical Exam: General: WN/WD, NAD, VS as above Resp: normal respiratory effort, decrease lung sounds bilateral bases CV: RRR, no murmur, Extremities: Moves all extremities, no edema Neuro: A&O x3, Results & Data Results & Data Vital Signs (Past 12 Hours) Vital Signs Temp Pulse Resp BP Pulse Ox O2 Del Method 11/06/23 08:01 36.5 C 77 16 126/77 98 Room Air Laboratory Results CBC and chemistry reviewed PG Care Time/CCT Total # of Minutes Spent Total Time Spent with Patient: Total time spent is greater than 50% in coordination of care (as documented) at patient's floor/unit and/or counseling patient: Coding Level of Care Code 37124 IN/OBS CONSULT LVL 3,45M Diagnoses Hypoxia R09.02 Hx of cancer of lung Z85.118 Primary osteoarthritis, left shoulder M19.012 Hypokalemia E87.6
[2023-11-06] MEDS ORDERED: ONDANSETRON 4 MG OD TAB PO STA (13:00)
[2023-11-06] MEDS ORDERED: ONDANSETRON 4 MG OD TAB ONE (13:04)
--- NOTE | 2023-11-06 16:38 | Discharge Summary ---
Date of Service November 06, 2023 Admission HPI Per Admitting Provider 68-year-old female with past medical history significant for hypertension, hypothyroidism, history of lung CA who presents with longstanding left shoulder pain. Patient has failed conservative measures. Pain is interfering with her daily activities. She would like to proceed with surgical intervention. Patient denies headaches, sweats, fevers, chills, double vision, blurred vision, cough, sore throat, dysphagia, chest pain, sob, wheezing, n/v/d/c, numbness, tingling, fatigue, urinary symptoms, mood disorders. ROS positive for left shoulder pain and stiffness. Admission Exam Per Admitting Provider Constitutional: well developed and well nourished; no acute distress Eyes: PERRL, conjunctivae normal, anicteric sclerae ENMT: external ear and nose normal, oropharynx normal Neck: trachea midline, no thyromegaly Respiratory: normal respiratory effort, lungs clear to auscultation Cardiovascular: RRR, no murmur, no edema Musculoskeletal: Left shoulder: Tenderness anterior glenoid. Positive impingement signs. Active painful ROM with bone on bone crepitation with strength testing. ER 4/5 with pain, IR 5/5, abduction 4-/5. FF to 180, abduction to 165, ER to 60 degrees. Skin: no rashes, warm and dry Neurologic: patellar DTR's 2+ bilat, sensation intact Psychiatric: A+Ox3, euthymic affect Principal Diagnosis Left shoulder osteoarthritis Discharge Exam Left shoulder: Dressings clean, dry, intact. Sling is in place. Fingers are mobile with wrist extension. Distal neurovascular status and sensation is grossly intact. Discharge Data Allergies Allergy/AdvReac Type Severity Reaction Status Date / Time No Known Allergies Allergy Verified 11/04/23 08:20 Consultations 11/02/23 14:15 Consult Hospitalist Routine 11/05/23 12:02 Consult Pulmonology Routine Procedures Performed Operation Date: 11/04/23 09:45 Actual Procedures p Left Total Shoulder Arthroplasty, Cemented(Left) - Moisés Sanchez MD Ordered Studies 11/04/23 05:00 US - OR guided needle placemen Routine 11/05/23 16:40 CT chest diagnostic wo con Urgent 11/06/23 09:45 FL sniff test Urgent Hospital Course (1) Primary osteoarthritis, left shoulder: Postop day 2 left total shoulder arthroplasty -PT/OT -Pain management is very -DVT prophylaxis: SCDs, aspirin 81 mg daily -AM labs: Mild hypokalemia stable at 3.3. She is on home potassium supplement. Mild drop in hemoglobin at 11.6 acute blood loss anemia due to surgical loss versus dilutional. Patient is asymptomatic. -Discharge planning: Plan on discharge home when stable. Patient has been on room air and O2 saturations have remained within normal range. She did have a chest x-ray yesterday which demonstrated elevated right hemidiaphragm as well as large pleural effusion. Pulmonology consult was placed and she underwent bedside ultrasound which showed no evidence of pleural effusion. Chest CT was obtained which also demonstrated no pleural effusion however does have right hemidiaphragm elevation. Likely plan on discharge home today pending hospitalist and pulmonology evals. Postop day 1 left total shoulder arthroplasty -PT/OT -Pain management is very -DVT prophylaxis: SCDs, aspirin 81 mg daily -AM labs: Mild hypokalemia. Patient does take potassium supplement and did not take yesterday at all. She will restart today. Mild drop in hemoglobin at 12.1 acute blood loss anemia due to surgical loss versus dilutional. Patient is asy mptomatic. -Discharge planning: Plan on discharge home when stable. Patient is on 2 via nasal cannula at this time. Possibly due to nerve block.. Plan on discharge home as long as able to wean off of O2 and progresses well through the morning. Lab Results 11/05/23 11/06/23 Range/Units 06:36 05:54 WBC 10.64 7.20 (4.8-10.8) K/ul RBC 3.94 L 3.70 L (4.20-5.40) M/uL Hgb 12.1 11.6 L (12.0-16.0) g/dl Hct 34.6 L 33.8 L (37.0-47.0) % MCV 87.8 91.4 (80.0-100.0) fL MCH 30.7 31.4 (25.0-34.0) pg MCHC 35.0 34.3 (32.0-36.0) g/dL RDW Std Deviation 43.9 47.0 H (36.4-46.3) fL RDW Coeff of Breanna 13.6 14.0 (11.5-14.5) % Plt Count 186 173 (130-400) K/uL MPV 9.6 9.7 (9.4-12.4) fL Immature Gran % (Auto) 0.8 % Neut % (Auto) 81.5 % Lymph % (Auto) 7.8 % [place] % (Auto) 9.8 % Eos % (Auto) 0.0 % Baso % (Auto) 0.1 % Neut # (Auto) 8.68 H (1.40-6.50) K/uL Lymph # (Auto) 0.83 L (1.20-3.40) K/uL [place] # (Auto) 1.04 H (0.11-0.59) K/uL Eos # (Auto) 0.00 (0.00-0.50) K/uL Baso # (Auto) 0.01 (0.00-0.20) K/uL Immature Gran # (Auto) 0.08 (0.01-0.20) K/uL Sodium 136 136 (136-145) mmol/L Potassium 3.3 L 3.3 L (3.5-5.1) mmol/L Chloride 101 100 (98-107) mmol/L Carbon Dioxide 29 31 (21-32) mmol/L Anion Gap 6 5 (3-11) BUN 13 11 (6-23) mg/dl Creatinine 0.55 L 0.50 L (0.6-1.2) mg/dl Est Cr Clr Drug Dosing 103.4 113.7 ml/min Est GFR ( Amer) 113.3 116.9 ml/min Est GFR (Non-Af Amer) 97.7 100.9 ml/min BUN/Creatinine Ratio 23.6 H 22.0 H (10-20) Glucose 161 H 81 (70-99(Fasting)) mg/dl Calcium 8.7 8.6 (8.6-10.3) mg/dl Total Time Total Time Spent Total Time Spent (In Minutes): 20 Discharge Plan Discharge Items Patient Disposition: Home - Self-Care Reason For Visit: POST OP Discharge Diagnosis: Left shoulder osteoarthritis Activity: Per Instructions section Non-emergency contact: Surgeon Call non-emergency contact if: you have any medication questions, your pain is not controlled, you have a fever, your temperature is above 101, your wound has increased redness and your wound has increased drainage Follow-up/Referrals: Pardeep Loya MD [Physician] - (within 2 weeks ) Hamlet Paul M.D. [Primary Care Provider] - Diet: Regular Addtl Attending Provider Instructions: ACTIVITY RECOMMENDATIONS: SELF CARE INSTRUCTIONS AFTER TOTAL SHOULDER ARTHROPLASTY A. You may do daily exercises as taught in physical therapy while in hospital. No lifting with the operative arm. Please schedule your outpatient physical therapy appointment to begin within 2-3 days after leaving the hospital. Specific restrictions will be written on your physical therapy prescription that is provided to you. B. You are to wear your sling/immobilizer at all times EXCEPT when performing your daily exercises, participating in physical therapy and for hygiene purposes. C. You may perform dry, daily dressing changes. Please keep your incision covered. You may shower 48 hours after surgery. Do not apply soap or any ointment/lotions directly over incision. Do not soak incision in bath tub/swimming pool. D. You may use ice as needed to operative shoulder. SPECIAL CARE INSTRUCTIONS: MEDICATION INSTRUCTIONS: VERY IMPORTANT TO READ AND REVIEW A. There are a few signs you need to watch for after you are home. Call [facility] at [phone] if you experience any of the followin. Increased severe shoulder pain. Some pain is expected especially when you exercise. 2. Increased swelling in you shoulder or arm; pain or swelling in either upper extremity. 3. Any fluid drainage from the incision. 4. Shortness of breath or chest pain. B. Please call [facility] at [phone] if you have any questions or concerns about your operation or recovery. C. Call your physician if: 1. Temperature is greater than 101 degrees (F). 2. Pain is not relieved by prescribed pain medications. 3. Increase drainage or redness from incision. 4. Unanswered questions or concerns. FOLLOW UP VISIT: Please call [facility] at [phone] to schedule a follow up appointment with Dr. Sanchez or his PA in 12-14 days from your surgery date. Addtl [place] Inspector Provider Instructions: You will need a repeat Chest xray in [address] Loya's office will help coordinate that for you. Their contact information is above. Continue to use your incentive spirometer at home. Stand-Alone Forms: My [facility], Pain - Opioid Pain Management, Smoking Cessation Medications and DC Order Prescriptions: New acetaminophen [Tylenol Extra Strength] 500 mg Tablet 1,000 mg PO Q8 Qty: 60 0RF tramadol 50 mg Tablet 50 - 100 mg PO .Q4h-6h MDD 6 PRN (Reason: pain) Qty: 30 0RF Rx Instructions: Ongoing therapy, Dr. Sanchez supervising Continued cetirizine [Zyrtec] 10 mg Tablet 10 mg PO DAILY PRN (Reason: allergies) indapamide 2.5 mg Tablet 2.5 mg PO QAM spironolactone 25 mg Tablet 25 mg PO QAM levothyroxine [Synthroid] 88 mcg Tablet 88 mcg PO QAM alprazolam [Xanax] 0.25 mg Tablet 0.25 mg PO BID PRN (Reason: Anxiety) pantoprazole 40 mg Tablet,Delayed Release (Dr/Ec) 40 mg PO QAM verapamil 100 mg Capsule, [address] 100 mg PO HS bupropion HCl 200 mg Tablet Sustained-Release 12 Hr 300 mg PO QAM magnesium Tablet 1 tab PO HS cholecalciferol (vitamin D3) [Vitamin D3] 125 mcg (5,000 unit) Tablet 125 mcg PO HS PreserVision AREDS-2 250-90-40-1 mg Capsule 1 tab PO BID Probiotic And Digestive Enzyme 1 cap PO BID Patient Comments: one is fruit and one is vegetable potassium chloride 99 mcg PO HS rosuvastatin 40 mg Tablet 40 mg PO QPM senna 8.6 mg Capsule 8.6 mg PO DAILY PRN (Reason: Constipation) aspirin 81 mg Tablet,Delayed Release (Dr/Ec) 81 mg PO HS Discontinued oxycodone 5 mg tablet 5 mg PO Q4H MDD 6 PRN (Reason: pain) Qty: 30 0RF ibuprofen [Advil] 200 mg Tablet 200 mg PO Q6H PRN (Reason: Pain) Discharge Orders: Discharge Order (Routine); Ordered 11/06/23 Ordered By: Ash Devi/Other Patient Handouts: DVT Post Op Prevention Admission Data Admit Date/Time: 11/04/23 13:12 Attending Provider: Moisés Sanchez Admit Provider: Moisés Sanchez Primary Care Provider: Hamlet Paul Other Providers: SiJuan Francisco bowers Vyacheslav Other Interventions: Discharge Summary Assessment (RN) Last Done: 11/06/23 12:39
== END 2023-11-06 13:49 | disposition home or self-care (01) ==
LOC: 3E 08:00 → ASU 08:00
DX: M19.012 Primary osteoarthritis, left shoulder; Z87.891 Personal history of nicotine dependence; I10 Essential (primary) hypertension; E03.9 Hypothyroidism, unspecified; Z79.82 Long term (current) use of aspirin; Z79.899 Other long term (current) drug therapy; Z79.890 Hormone replacement therapy